=== PATIENT | male | born 1945 | race African-American/Black ===

== ENCOUNTER → 2018-06-23 | Outpatient (CLI) | payer MEDICARE, BC | END | disposition home or self-care (01) | LOC: CARD 12:41 | PROVIDERS: ATTEND Specialist | DX: I10 Essential (primary) hypertension (principal) | CPT/HCPCS: 93005 ==

== ENCOUNTER 2019-11-08 13:14 | Inpatient (IN) | payer BC, MEDICARE ==
[~2019-11-08] VITALS: Ht 175.3 cm; Wt 85.4 kg
[2019-11-08] MEDS ORDERED: ONDANSETRON HCL 4MG/2ML INJ IV STA (14:04)
[2019-11-08] MEDS ORDERED: LABETALOL 5MG/ML SYR 20 MG/4 ML SYRINGE IV ONE (14:15)
[2019-11-08 14:18] LABS: BASOPHILS % 0.9 % (0.0-2.0); HEMATOCRIT. 25.1 % (42.0-52.0); HEMOGLOBIN. 8.6 g/dL (14.0-18.0); LYMPHOCYTES % 19.2 % (20.0-50.0); MEAN CORPUSCULAR HEMOGLOBIN 32.1 pg (28.0-32.0); MEAN CORPUSCULAR VOLUME 93.7 fL (80.0-94.0); MONOCYTES % 8.6 % (2.0-8.0); NEUTROPHILS % 69.3 % (40.0-76.0); PLATELET 115 x1000/uL (130-400); RED BLOOD CELL COUNT 2.68 mill/uL (4.7-6.1); RED CELL DISTRIBUTION WIDTH 12.9 % (11.6-14.6)
[2019-11-08 14:25] LABS: CHLORIDE 111 mEq/L (98-107)
[2019-11-08 14:34] LABS: ETHANOL BLOOD < 10 mg/dL
[2019-11-08 16:20] LABS: *AMPHETAMINES SCREEN URINE NEGATIVE (NEGATIVE); *BARBITURATES SCREEN URINE NEGATIVE (NEGATIVE); *BENZODIAZEPINES SCREEN URINE NEGATIVE (NEGATIVE); *COCAINE SCREEN URINE NEGATIVE (NEGATIVE)
[2019-11-08 16:21] LABS: CANNABINOID URINE SCREEN NEGATIVE (NEGATIVE); METHADONE URINE SCREEN NEGATIVE (NEGATIVE); OPIATES URINE SCREEN NEGATIVE (NEGATIVE); PHENCYCLIDINE URINE SCREEN NEGATIVE (NEGATIVE)
[2019-11-08] MEDS ORDERED: CLONIDINE 0.1MG TABLET PO PRN (16:30)
[2019-11-08] MEDS ORDERED: ACETAMINOPHEN 325MG TABLET PO PRN (16:30)
[2019-11-08] MEDS ORDERED: HYDRALAZINE 20MG/ML VIAL IV PRN ×2 (17:02→21:00)
[2019-11-08 21:15] VITALS: BP 185/99
[2019-11-08] MEDS: DOXAZOSIN MESYLATE 4MG TABLET PO SCH (22:01)
[2019-11-08] MEDS ORDERED: AMLO10TA80 PO (23:52)
[2019-11-08] MEDS ORDERED: EPOE200014 SQ (23:52)
[2019-11-08] MEDS ORDERED: TORS20TA4 PO (23:52)
[2019-11-08] MEDS ORDERED: DOXA4TAB3 PO (23:52)
[2019-11-08] MEDS ORDERED: HYDR-4134 PO (23:52)
[2019-11-08] MEDS ORDERED: REPA0.5T5 PO (23:52)
[2019-11-08] MEDS ORDERED: ATOR20TA65 PO (23:52)
[2019-11-08 23:58] VITALS: BP 143/71
[2019-11-09] VITALS (16 sets, daily range): BP systolic 102–202; BP diastolic 62–90
[2019-11-09 06:13] LABS: CHLORIDE 112 mEq/L (98-107)
[2019-11-09 06:29] LABS: TOTAL IRON BINDING CAPACITY 249 ug/dL (250-450)
[2019-11-09 06:31] LABS: AMYLASE 172 IU/L (25-115); PHOSPHORUS 6.2 mg/dL (2.5-4.9)
[2019-11-09 06:41] LABS: HEPATITIS B SURFACE ANTIGEN NEGATIVE
[2019-11-09 07:21] LABS: INR 1.1; PROTHROMBIN TIME 11.9 sec (9.6-11.0)
[2019-11-09] MEDS ORDERED: CEFAZOLIN 1000MG PREMIX 50 ML IV SCH (07:30)
[2019-11-09 07:58] LABS: HEMATOCRIT. 21.1 % (42.0-52.0); HEMOGLOBIN. 7.2 g/dL (14.0-18.0); MEAN CORPUSCULAR VOLUME 94.1 fL (80.0-94.0); MEAN PLATELET VOLUME 9.1 fl (7.4-10.4); PLATELET 98 x1000/uL (130-400); RED BLOOD CELL COUNT 2.24 mill/uL (4.7-6.1); RED CELL DISTRIBUTION WIDTH 12.9 % (11.6-14.6)
[2019-11-09] MEDS ORDERED: LIDOCAINE HCL 1% 20ML VIAL (Pyxis) INJ ONE (08:01)
[2019-11-09] MEDS ORDERED: SODIUM BICARBONATE 4% (2.4MEQ) 5ML VIAL IV ONE (08:01)
[2019-11-09] MEDS ORDERED: CEFAZOLIN 1000MG PREMIX 50 ML IV ONE (08:02)
[2019-11-09] MEDS ORDERED: FENTANYL CITRATE/PF 50MCG/ML 2ML VIAL ONE (08:03)
[2019-11-09] MEDS: AMLODIPINE 10MG TABLET PO SCH (08:22)
[2019-11-09] MEDS ORDERED: FENTANYL CITRATE/PF 50MCG/ML 2ML VIAL IV SCH (08:45)
[2019-11-09] MEDS ORDERED: HEPARIN 5000 UNITS/ML VIAL SUBCUT SCH (09:00)
[2019-11-09] MEDS ORDERED: MANNITOL 12.5G (25%) VIAL 50ML IV SCH (10:00)
[2019-11-09 13:15] LABS: PLATELET ESTIMATE DECREASED
[2019-11-09 13:34] LABS: FERRITIN 591 ng/mL (22-322)
[2019-11-09] MEDS ORDERED: DEXTROSE 50% WATER 50ML SYRINGE IV PRN ×2 (13:45)
[2019-11-09] MEDS: HYDRALAZINE HCL 50MG TABLET PO SCH ×2 (13:45→21:58)
[2019-11-09] MEDS: CLONIDINE 0.2MG TABLET PO SCH ×2 (14:00→21:59)
[2019-11-09 14:33] LABS: VITAMIN B12 SERUM 944 pg/mL (211-911)
[2019-11-09 14:34] LABS: FOLIC ACID (FOLATE) SERUM > 20.00 ng/mL (>5.38)
[2019-11-09] MEDS ORDERED: BRIM10DR2 EACHEYE (15:45)
[2019-11-09] MEDS: INSULIN LISPRO 100 UNITS/ML SUBCUT SCH ×2 (17:50→21:00)
[2019-11-09] MEDS: BLOOD SUGAR DIAGNOSTIC STRIP TEST SCH ×2 (17:53→21:05)
[2019-11-09] MEDS: CALCIUM ACETATE 667MG CAPSULE PO SCH (18:21)
[2019-11-09] MEDS: FERROUS SULFATE 325MG TABLET PO SCH (18:21)
[2019-11-09 19:42] LABS: HEPATITIS B SURFACE AB < 3.1 mIU/mL
[2019-11-09 19:52] LABS: HEPATITIS B SURFACE ANTIGEN NEGATIVE
[2019-11-09 20:22] LABS: HEPATITIS A AB IGM NEGATIVE (NEGATIVE)
[2019-11-09] MEDS: DOXAZOSIN MESYLATE 4MG TABLET PO SCH (21:58)
[2019-11-10] VITALS (8 sets, daily range): BP systolic 108–125; BP diastolic 49–75
[2019-11-10] MEDS: BLOOD SUGAR DIAGNOSTIC STRIP TEST SCH ×4 (06:13→21:08)
[2019-11-10] MEDS: HYDRALAZINE HCL 50MG TABLET PO SCH ×3 (06:21→22:00)
[2019-11-10] MEDS: CLONIDINE 0.2MG TABLET PO SCH ×3 (06:21→22:00)
[2019-11-10] MEDS: INSULIN LISPRO 100 UNITS/ML SUBCUT SCH ×4 (07:50→21:21)
[2019-11-10] MEDS: CALCIUM ACETATE 667MG CAPSULE PO SCH ×3 (08:00→17:43)
[2019-11-10] MEDS: BRIMONIDINE 0.2% OPHTH DROPS 5ML BOTHEYE SCH ×2 (08:00→17:44)
[2019-11-10] MEDS: FERROUS SULFATE 325MG TABLET PO SCH ×2 (08:00→17:43)
[2019-11-10] MEDS: FOLIC ACID/VITAMIN B COMP W-C TABLET PO SCH (08:00)
[2019-11-10] MEDS: TIMOLOL MALEATE 0.5% OPHTH DROPS 5ML RIGHTEYE SCH ×2 (08:01→17:44)
[2019-11-10] MEDS: AMLODIPINE 10MG TABLET PO SCH (09:00)
[2019-11-10 09:13] LABS: BASOPHILS % 0.8 % (0.0-2.0); EOSINOPHILS % 1.5 % (0.0-5.0); LYMPHOCYTES % 18.4 % (20.0-50.0); MEAN CORPUSCULAR HEMOGLOBIN 32.1 pg (28.0-32.0); MEAN CORPUSCULAR VOLUME 92.9 fL (80.0-94.0); MONOCYTES % 10.1 % (2.0-8.0); NEUTROPHILS % 69.2 % (40.0-76.0); PLATELET 88 x1000/uL (130-400); RED BLOOD CELL COUNT 2.08 mill/uL (4.7-6.1)
[2019-11-10 09:19] LABS: HEMOGLOBIN. 6.7 g/dL (14.0-18.0)
[2019-11-10 09:20] LABS: HEMATOCRIT. 19.3 % (42.0-52.0)
[2019-11-10 09:23] LABS: CHLORIDE 103 mEq/L (98-107)
[2019-11-10] MEDS: ONDANSETRON HCL 4MG/2ML INJ IV PRN ×2 (09:48→21:18)
[2019-11-10 15:53] LABS: HEMATOCRIT 22.8 % (42.0-52.0); HEMOGLOBIN 7.8 g/dL (14.0-18.0)
[2019-11-10 16:05] LABS: INR 1.1; PROTHROMBIN TIME 11.9 sec (9.6-11.0)
[2019-11-10] MEDS ORDERED: EPOETIN ALFA 10000UNITS/ML VIAL SUBCUT SCH (21:00)
[2019-11-10] MEDS: DOXAZOSIN MESYLATE 4MG TABLET PO SCH (21:19)
[2019-11-11 00:14] VITALS: BP 122/62
[2019-11-11 04:00] VITALS: BP 134/64
[2019-11-11 05:07] LABS: HIV SCREEN 4G Non Reactive (Non Reactive)
[2019-11-11] MEDS: CLONIDINE 0.2MG TABLET PO SCH ×2 (06:00→13:25)
[2019-11-11] MEDS: HYDRALAZINE HCL 50MG TABLET PO SCH ×2 (06:00→13:25)
[2019-11-11 06:38] LABS: CHLORIDE 104 mEq/L (98-107)
[2019-11-11 06:49] LABS: BASOPHILS % 0.4 % (0.0-2.0); HEMATOCRIT. 23.1 % (42.0-52.0); HEMOGLOBIN. 7.9 g/dL (14.0-18.0); LYMPHOCYTES % 21.8 % (20.0-50.0); MEAN CORPUSCULAR HEMOGLOBIN 31.9 pg (28.0-32.0); MEAN CORPUSCULAR VOLUME 92.8 fL (80.0-94.0); MEAN PLATELET VOLUME 9.1 fl (7.4-10.4); MONOCYTES % 7.8 % (2.0-8.0); PLATELET 89 x1000/uL (130-400); RED BLOOD CELL COUNT 2.49 mill/uL (4.7-6.1); RED CELL DISTRIBUTION WIDTH 13.4 % (11.6-14.6)
[2019-11-11] MEDS: BLOOD SUGAR DIAGNOSTIC STRIP TEST SCH ×2 (06:49→13:22)
[2019-11-11] MEDS: INSULIN LISPRO 100 UNITS/ML SUBCUT SCH ×2 (06:49→13:10)
[2019-11-11 08:00] VITALS: BP 135/66
[2019-11-11] MEDS: CALCIUM ACETATE 667MG CAPSULE PO SCH ×2 (08:10→13:23)
[2019-11-11] MEDS: FOLIC ACID/VITAMIN B COMP W-C TABLET PO SCH (08:10)
[2019-11-11] MEDS: FERROUS SULFATE 325MG TABLET PO SCH (08:10)
[2019-11-11] MEDS: BRIMONIDINE 0.2% OPHTH DROPS 5ML BOTHEYE SCH (08:12)
[2019-11-11] MEDS: AMLODIPINE 10MG TABLET PO SCH (08:12)
[2019-11-11] MEDS: TIMOLOL MALEATE 0.5% OPHTH DROPS 5ML RIGHTEYE SCH (08:12)
[2019-11-11 12:00] VITALS: BP 111/72
[2019-11-11] MEDS ORDERED: NEPVIT PO (12:21)
[2019-11-11] MEDS ORDERED: CALC667C PO (12:21)
[2019-11-11] MEDS ORDERED: HYDR-4135 PO (12:21)
[2019-11-11] MEDS ORDERED: FERR325T23 PO (12:21)
[2019-11-11] MEDS ORDERED: CLON0.2T12 PO (12:21)
[2019-11-11 14:45] VITALS: BP 111/72
[2019-11-11 16:16] VITALS: BP 160/74
== END 2019-11-11 17:45 | disposition home or self-care (01) | DRG 673 ==
LOC: ER 13:14 → CMPBEDREQ 15:40 → EDBEDREQ 15:46 → 6WST 15:50 → EDBEDREQ 15:55 → EDBEDREQTM 15:55 → ENRESERV 20:16 → 7WST 11-11 11:31
PROVIDERS: ADMIT Internal Medicine; ATTEND Internal Medicine
PROC: 5A1D70Z Performance of Urinary Filtration, Intermittent, Less than 6 Hours Per Day (ICD-10-PCS; 2019-11-09)
PROC: 0JH63XZ Insertion of Tunneled Vascular Access Device into Chest Subcutaneous Tissue and Fascia, Percutaneous Approach (ICD-10-PCS; 2019-11-09)
PROC: 02HV33Z Insertion of Infusion Device into Superior Vena Cava, Percutaneous Approach (ICD-10-PCS; 2019-11-09)
PROC: B548ZZA Ultrasonography of Superior Vena Cava, Guidance (ICD-10-PCS; 2019-11-09)
PROC: B5181ZA Fluoroscopy of Superior Vena Cava using Low Osmolar Contrast, Guidance (ICD-10-PCS; 2019-11-09)
PROC: 30233N1 Transfusion of Nonautologous Red Blood Cells into Peripheral Vein, Percutaneous Approach (ICD-10-PCS; principal; 2019-11-10)
PROC: 5A1D70Z Performance of Urinary Filtration, Intermittent, Less than 6 Hours Per Day (ICD-10-PCS; 2019-11-11)
DX: I12.0 Hypertensive chronic kidney disease with stage 5 chronic kidney disease or end stage renal disease (principal); N18.6 End stage renal disease; G93.41 Metabolic encephalopathy; I16.1 Hypertensive emergency; D61.818 Other pancytopenia; N25.81 Secondary hyperparathyroidism of renal origin; N17.9 Acute kidney failure, unspecified; E11.22 Type 2 diabetes mellitus with diabetic chronic kidney disease; E87.6 Hypokalemia; D63.1 Anemia in chronic kidney disease; E11.40 Type 2 diabetes mellitus with diabetic neuropathy, unspecified; E78.5 Hyperlipidemia, unspecified; I49.1 Atrial premature depolarization; E83.51 Hypocalcemia; I35.1 Nonrheumatic aortic (valve) insufficiency; B19.20 Unspecified viral hepatitis C without hepatic coma; I25.2 Old myocardial infarction; Z86.73 Personal history of transient ischemic attack (TIA), and cerebral infarction without residual deficits; Z99.2 Dependence on renal dialysis; Z79.899 Other long term (current) drug therapy; Z82.49 Family history of ischemic heart disease and other diseases of the circulatory system; Z83.3 Family history of diabetes mellitus; Z80.8 Family history of malignant neoplasm of other organs or systems
CPT/HCPCS: 36415; 36558; 71045; 76937; 77001; 80053; 80076; 80305; 80320; 82150; 82607; 82728; 82746; 82962; 83036; 83540; 83550; 83735; 83880; 83970; 84100; 84484; 85014; 85018; 85025; 85044; 85384; 86705; 86706; 86709; 86803; 86850; 86900; 86920; 87340; 87389; 93005; 93306; 96374; 96375; 99152; 99153; 99291; C1750; C1769; J0360; J0690; J0885; J1642; J1815; J2150; J2405; J3010; J3490; P9016; G0480; G0500

== ENCOUNTER 2019-11-17 17:37 | Inpatient (IN) | payer BC ==
[~2019-11-17] VITALS: Ht 175.3 cm; Wt 75.3 kg
[~2019-11-17 17:37] MED LIST: AMLO10TA80 PO; ATOR20TA65 PO; BRIM10DR2 EACHEYE; CALC667C PO; CLON0.2T12 PO; DOXA4TAB3 PO; EPOE200014 SQ; FERR325T23 PO; HYDR-4135 PO; NEPVIT PO; REPA0.5T5 PO; TORS20TA4 PO
[2019-11-17] MEDS ORDERED: LORAZEPAM 2MG/ML CPJ IM ONE (19:00)
[2019-11-17] MEDS ORDERED: HALOPERIDOL LACTATE 5MG/ML VIAL IM ONE (19:00)
[2019-11-17 19:45] LABS: BASOPHILS % 0.6 % (0.0-2.0); EOSINOPHILS % 2.4 % (0.0-5.0); HEMATOCRIT. 28.4 % (42.0-52.0); HEMOGLOBIN. 9.7 g/dL (14.0-18.0); LYMPHOCYTES % 25.4 % (20.0-50.0); MEAN CORPUSCULAR HEMOGLOBIN 32.2 pg (28.0-32.0); MEAN CORPUSCULAR VOLUME 94.6 fL (80.0-94.0); MEAN PLATELET VOLUME 8.9 fl (7.4-10.4); MONOCYTES % 13.2 % (2.0-8.0); NEUTROPHILS % 58.4 % (40.0-76.0); PLATELET 132 x1000/uL (130-400); RED CELL DISTRIBUTION WIDTH 13.7 % (11.6-14.6)
[2019-11-17 19:53] LABS: CHLORIDE 95 mEq/L (98-107)
[2019-11-17 19:55] LABS: INR 1.2; PROTHROMBIN TIME 12.6 sec (9.6-11.0)
[2019-11-17 19:56] LABS: ETHANOL BLOOD < 10 mg/dL
[2019-11-17] MEDS ORDERED: CLONIDINE 0.2MG TABLET PO ONE (22:00)
[2019-11-17] MEDS ORDERED: AMLODIPINE 10MG TABLET PO ONE (22:00)
[2019-11-17] MEDS ORDERED: ASPIRIN 600MG SUPP PR ONE (22:30)
[2019-11-17] MEDS ORDERED: HYDRALAZINE 20MG/ML VIAL IV ONE (22:30)
[2019-11-17] MEDS ORDERED: HYDRALAZINE 20MG/ML VIAL IV SCH (23:30)
[2019-11-18] VITALS (7 sets, daily range): BP systolic 116–169; BP diastolic 58–98
[2019-11-18 00:29] LABS: CLARITY URINE CLEAR (CLEAR); COLOR URINE YELLOW (YELLOW); KETONES URINE NEGATIVE (NEGATIVE); LEUKOCYTE ESTERASE URINE NEGATIVE (NEGATIVE); NITRITE URINE NEGATIVE (NEGATIVE); OCCULT BLOOD URINE NEGATIVE (NEGATIVE); PH URINE 7.5 (4.5-8.0); PROTEIN URINE 3+ (NEGATIVE); SPECIFIC GRAVITY URINE 1.008 (1.005-1.030)
[2019-11-18 00:37] LABS: *AMPHETAMINES SCREEN URINE NEGATIVE (NEGATIVE)
[2019-11-18 00:38] LABS: *BARBITURATES SCREEN URINE NEGATIVE (NEGATIVE); *BENZODIAZEPINES SCREEN URINE NEGATIVE (NEGATIVE); *COCAINE SCREEN URINE NEGATIVE (NEGATIVE); METHADONE URINE SCREEN NEGATIVE (NEGATIVE); OPIATES URINE SCREEN NEGATIVE (NEGATIVE); PHENCYCLIDINE URINE SCREEN NEGATIVE (NEGATIVE)
[2019-11-18 00:39] LABS: CANNABINOID URINE SCREEN NEGATIVE (NEGATIVE)
[2019-11-18] MEDS ORDERED: REPAGLINIDE 0.5MG TABLET PO SCH (02:15)
[2019-11-18] MEDS ORDERED: AMLODIPINE 10MG TABLET PO SCH (02:15)
[2019-11-18] MEDS ORDERED: ONDANSETRON HCL 4MG/2ML INJ IV PRN (02:15)
[2019-11-18 05:04] LABS: BASOPHILS % 0.6 % (0.0-2.0); EOSINOPHILS % 2.1 % (0.0-5.0); HEMATOCRIT. 32.1 % (42.0-52.0); LYMPHOCYTES % 15.3 % (20.0-50.0); MEAN CORPUSCULAR HEMOGLOBIN 32.2 pg (28.0-32.0); MEAN CORPUSCULAR VOLUME 93.9 fL (80.0-94.0); MEAN PLATELET VOLUME 8.9 fl (7.4-10.4); MONOCYTES % 10.6 % (2.0-8.0); NEUTROPHILS % 71.4 % (40.0-76.0); PLATELET 117 x1000/uL (130-400); RED BLOOD CELL COUNT 3.42 mill/uL (4.7-6.1); RED CELL DISTRIBUTION WIDTH 13.2 % (11.6-14.6)
[2019-11-18] MEDS ORDERED: CLONIDINE 0.2MG TABLET PO SCH (06:00)
[2019-11-18] MEDS: DOXAZOSIN MESYLATE 4MG TABLET PO SCH ×2 (08:50→21:38)
[2019-11-18] MEDS: FOLIC ACID/VITAMIN B COMP W-C TABLET PO SCH (08:51)
[2019-11-18] MEDS: FERROUS SULFATE 325MG TABLET PO SCH ×2 (08:51→16:47)
[2019-11-18] MEDS: CALCIUM ACETATE 667MG CAPSULE PO SCH ×3 (08:51→16:47)
[2019-11-18] MEDS: HYDRALAZINE HCL 50MG TABLET PO SCH ×3 (08:53→21:39)
[2019-11-18] MEDS: HEPARIN 5000 UNITS/ML VIAL SUBCUT SCH ×2 (08:53→21:38)
[2019-11-18] MEDS: AMLODIPINE 10MG TABLET PO SCH (08:54)
[2019-11-18] MEDS ORDERED: ATORVASTATIN CALCIUM 20MG TABLET PO SCH (09:00)
[2019-11-18] MEDS: LOSARTAN POTASSIUM 25 MG TABLET PO SCH (11:45)
[2019-11-18] MEDS: FUROSEMIDE 40MG/4ML VIAL IVP SCH (11:45)
[2019-11-18] MEDS ORDERED: MANNITOL 12.5G (25%) VIAL 50ML IV SCH (15:00)
[2019-11-18] MEDS ORDERED: ALLO100T MT (18:54)
[2019-11-18] MEDS ORDERED: RISPERIDONE 0.5MG TABLET PO PRN (20:45)
[2019-11-19] VITALS (13 sets, daily range): BP systolic 102–140; BP diastolic 51–77
[2019-11-19] MEDS: HYDRALAZINE HCL 50MG TABLET PO SCH ×3 (05:58→21:51)
[2019-11-19 06:56] LABS: BASOPHILS % 0.6 % (0.0-2.0); EOSINOPHILS % 1.3 % (0.0-5.0); HEMATOCRIT. 28.2 % (42.0-52.0); HEMOGLOBIN. 9.7 g/dL (14.0-18.0); LYMPHOCYTES % 18.7 % (20.0-50.0); MEAN CORPUSCULAR HEMOGLOBIN 32.4 pg (28.0-32.0); MEAN CORPUSCULAR VOLUME 93.9 fL (80.0-94.0); MEAN PLATELET VOLUME 8.6 fl (7.4-10.4); MONOCYTES % 11.6 % (2.0-8.0); NEUTROPHILS % 67.8 % (40.0-76.0); PLATELET 108 x1000/uL (130-400); RED CELL DISTRIBUTION WIDTH 13.6 % (11.6-14.6)
[2019-11-19 07:54] LABS: CHLORIDE 104 mEq/L (98-107)
[2019-11-19 08:04] LABS: VITAMIN B12 SERUM >2000 pg/mL pg/mL (211-911)
[2019-11-19] MEDS: HEPARIN 5000 UNITS/ML VIAL SUBCUT SCH ×2 (08:26→21:48)
[2019-11-19] MEDS: FUROSEMIDE 40MG/4ML VIAL IVP SCH (08:26)
[2019-11-19] MEDS: DOXAZOSIN MESYLATE 4MG TABLET PO SCH ×2 (08:27→21:46)
[2019-11-19] MEDS: CALCIUM ACETATE 667MG CAPSULE PO SCH ×3 (08:27→17:15)
[2019-11-19] MEDS: AMLODIPINE 10MG TABLET PO SCH (08:27)
[2019-11-19] MEDS: FOLIC ACID/VITAMIN B COMP W-C TABLET PO SCH (08:27)
[2019-11-19] MEDS: LOSARTAN POTASSIUM 25 MG TABLET PO SCH (08:27)
[2019-11-19] MEDS: FERROUS SULFATE 325MG TABLET PO SCH ×2 (08:27→17:15)
[2019-11-19] MEDS: ATORVASTATIN CALCIUM 20MG TABLET PO SCH (21:46)
[2019-11-20] VITALS (14 sets, daily range): BP systolic 124–200; BP diastolic 49–97
[2019-11-20] MEDS: ACETAMINOPHEN 325MG TABLET PO PRN (03:22)
[2019-11-20] MEDS: HYDRALAZINE HCL 50MG TABLET PO SCH ×3 (06:35→21:21)
[2019-11-20] MEDS: CLONIDINE 0.1MG TABLET PO PRN (07:22)
[2019-11-20] MEDS: CALCIUM ACETATE 667MG CAPSULE PO SCH ×3 (08:05→18:23)
[2019-11-20] MEDS: FOLIC ACID/VITAMIN B COMP W-C TABLET PO SCH (08:05)
[2019-11-20] MEDS: FERROUS SULFATE 325MG TABLET PO SCH ×2 (08:05→18:23)
[2019-11-20] MEDS: FUROSEMIDE 40MG/4ML VIAL IVP SCH (08:15)
[2019-11-20] MEDS: HEPARIN 5000 UNITS/ML VIAL SUBCUT SCH ×2 (08:16→21:23)
[2019-11-20 10:14] LABS: BASOPHILS % 0.8 % (0.0-2.0); HEMATOCRIT. 27.6 % (42.0-52.0); HEMOGLOBIN. 9.4 g/dL (14.0-18.0); LYMPHOCYTES % 22.5 % (20.0-50.0); MEAN CORPUSCULAR HEMOGLOBIN 32.1 pg (28.0-32.0); MEAN CORPUSCULAR VOLUME 94.1 fL (80.0-94.0); MEAN PLATELET VOLUME 8.1 fl (7.4-10.4); MONOCYTES % 12.2 % (2.0-8.0); NEUTROPHILS % 63.5 % (40.0-76.0); PLATELET 99 x1000/uL (130-400); RED BLOOD CELL COUNT 2.93 mill/uL (4.7-6.1); RED CELL DISTRIBUTION WIDTH 13.6 % (11.6-14.6)
[2019-11-20] MEDS ORDERED: RISP05 PO (10:16)
[2019-11-20] MEDS ORDERED: LOSA25TA3 PO (10:16)
[2019-11-20 10:35] LABS: CHLORIDE 102 mEq/L (98-107)
[2019-11-20] MEDS: DOXAZOSIN MESYLATE 4MG TABLET PO SCH ×2 (14:43→21:21)
[2019-11-20] MEDS: LOSARTAN POTASSIUM 25 MG TABLET PO SCH (14:43)
[2019-11-20] MEDS: HYDRALAZINE 20MG/ML VIAL IV PRN ×2 (17:26→17:36)
[2019-11-20] MEDS: AMLODIPINE 10MG TABLET PO SCH (17:26)
[2019-11-20] MEDS: ATORVASTATIN CALCIUM 20MG TABLET PO SCH (21:21)
[2019-11-21] VITALS (12 sets, daily range): BP systolic 99–166; BP diastolic 49–90
[2019-11-21] MEDS: CLONIDINE 0.1MG TABLET PO PRN (02:58)
[2019-11-21] MEDS: RISPERIDONE 1MG TABLET PO PRN ×2 (02:58→21:11)
[2019-11-21] MEDS: HYDRALAZINE HCL 50MG TABLET PO SCH ×3 (05:34→21:11)
[2019-11-21 06:08] LABS: BASOPHILS % 0.9 % (0.0-2.0); HEMOGLOBIN. 9.1 g/dL (14.0-18.0); LYMPHOCYTES % 10.4 % (20.0-50.0); MEAN CORPUSCULAR VOLUME 94.4 fL (80.0-94.0); MEAN PLATELET VOLUME 8.4 fl (7.4-10.4); MONOCYTES % 10.1 % (2.0-8.0); NEUTROPHILS % 77.6 % (40.0-76.0); PLATELET 95 x1000/uL (130-400); RED BLOOD CELL COUNT 2.86 mill/uL (4.7-6.1); RED CELL DISTRIBUTION WIDTH 13.5 % (11.6-14.6)
[2019-11-21 06:19] LABS: CHLORIDE 107 mEq/L (98-107)
[2019-11-21] MEDS: LOSARTAN POTASSIUM 25 MG TABLET PO SCH (08:33)
[2019-11-21] MEDS: AMLODIPINE 10MG TABLET PO SCH (08:33)
[2019-11-21] MEDS: FERROUS SULFATE 325MG TABLET PO SCH ×2 (08:33→18:31)
[2019-11-21] MEDS: DOXAZOSIN MESYLATE 4MG TABLET PO SCH ×2 (08:33→21:11)
[2019-11-21] MEDS: FUROSEMIDE 40MG/4ML VIAL IVP SCH (08:33)
[2019-11-21] MEDS: FOLIC ACID/VITAMIN B COMP W-C TABLET PO SCH (08:33)
[2019-11-21] MEDS: CALCIUM ACETATE 667MG CAPSULE PO SCH ×3 (08:33→18:31)
[2019-11-21] MEDS: HEPARIN 5000 UNITS/ML VIAL SUBCUT SCH (08:34)
[2019-11-21] MEDS: ATORVASTATIN CALCIUM 20MG TABLET PO SCH (21:12)
[2019-11-21] MEDS: ACETAMINOPHEN 325MG TABLET PO PRN (21:13)
[2019-11-21] MEDS ORDERED: RISPERIDONE 1MG TABLET PO NR (23:28)
[2019-11-22] VITALS (12 sets, daily range): BP systolic 120–171; BP diastolic 59–90
[2019-11-22] MEDS: HYDRALAZINE HCL 50MG TABLET PO SCH (06:14)
[2019-11-22] MEDS ORDERED: HALOPERIDOL LACTATE 5MG/ML VIAL IM SCH (06:30)
[2019-11-22] MEDS ORDERED: HALOPERIDOL LACTATE 5MG/ML VIAL IM PRN (06:30)
[2019-11-22] MEDS ORDERED: RISPERIDONE 1MG TABLET PO PRN (08:45)
[2019-11-22] MEDS: LOSARTAN POTASSIUM 25 MG TABLET PO SCH ×2 (09:04→21:31)
[2019-11-22] MEDS: CALCIUM ACETATE 667MG CAPSULE PO SCH ×3 (09:04→18:10)
[2019-11-22] MEDS: FUROSEMIDE 40MG/4ML VIAL IVP SCH (09:04)
[2019-11-22] MEDS: FOLIC ACID/VITAMIN B COMP W-C TABLET PO SCH (09:05)
[2019-11-22] MEDS: DOXAZOSIN MESYLATE 4MG TABLET PO SCH ×2 (09:05→21:31)
[2019-11-22] MEDS: AMLODIPINE 10MG TABLET PO SCH (09:05)
[2019-11-22] MEDS: FERROUS SULFATE 325MG TABLET PO SCH ×2 (09:09→18:10)
[2019-11-22 10:37] LABS: BASOPHILS % 0.7 % (0.0-2.0); EOSINOPHILS % 0.3 % (0.0-5.0); HEMATOCRIT. 27.6 % (42.0-52.0); HEMOGLOBIN. 9.3 g/dL (14.0-18.0); LYMPHOCYTES % 14.1 % (20.0-50.0); MEAN CORPUSCULAR HEMOGLOBIN 31.8 pg (28.0-32.0); MEAN CORPUSCULAR VOLUME 94.3 fL (80.0-94.0); MEAN PLATELET VOLUME 8.5 fl (7.4-10.4); MONOCYTES % 12.4 % (2.0-8.0); NEUTROPHILS % 72.5 % (40.0-76.0); PLATELET 80 x1000/uL (130-400); RED BLOOD CELL COUNT 2.93 mill/uL (4.7-6.1); RED CELL DISTRIBUTION WIDTH 13.5 % (11.6-14.6)
[2019-11-22 10:43] LABS: CHLORIDE 106 mEq/L (98-107)
[2019-11-22] MEDS: HYDRALAZINE 20MG/ML VIAL IV PRN (11:39)
[2019-11-22] MEDS: CLONIDINE 0.2MG TABLET PO SCH ×2 (16:39→21:30)
[2019-11-22] MEDS ORDERED: LOSARTAN POTASSIUM 25 MG TABLET PO SCH (21:00)
[2019-11-22] MEDS: ATORVASTATIN CALCIUM 20MG TABLET PO SCH (21:31)
[2019-11-22] MEDS: RISPERIDONE 1MG TABLET PO SCH (21:35)
[2019-11-23] VITALS (12 sets, daily range): BP systolic 104–143; BP diastolic 49–86
[2019-11-23] MEDS: CLONIDINE 0.2MG TABLET PO SCH ×2 (05:26→13:47)
[2019-11-23 07:30] LABS: BASOPHILS % 0.7 % (0.0-2.0); EOSINOPHILS % 2.1 % (0.0-5.0); HEMATOCRIT. 25.7 % (42.0-52.0); HEMOGLOBIN. 8.8 g/dL (14.0-18.0); LYMPHOCYTES % 21.8 % (20.0-50.0); MEAN CORPUSCULAR HEMOGLOBIN 32.4 pg (28.0-32.0); MEAN CORPUSCULAR VOLUME 94.5 fL (80.0-94.0); MEAN PLATELET VOLUME 8.5 fl (7.4-10.4); MONOCYTES % 13.2 % (2.0-8.0); NEUTROPHILS % 62.2 % (40.0-76.0); PLATELET 77 x1000/uL (130-400); RED BLOOD CELL COUNT 2.72 mill/uL (4.7-6.1); RED CELL DISTRIBUTION WIDTH 13.5 % (11.6-14.6)
[2019-11-23 07:37] LABS: CHLORIDE 106 mEq/L (98-107)
[2019-11-23 07:44] LABS: PHOSPHORUS 4.4 mg/dL (2.5-4.9)
[2019-11-23] MEDS: RISPERIDONE 1MG TABLET PO SCH ×2 (09:00→22:02)
[2019-11-23] MEDS: FOLIC ACID/VITAMIN B COMP W-C TABLET PO SCH (09:00)
[2019-11-23] MEDS: CALCIUM ACETATE 667MG CAPSULE PO SCH ×3 (10:52→18:27)
[2019-11-23] MEDS: AMLODIPINE 10MG TABLET PO SCH (10:52)
[2019-11-23] MEDS: FERROUS SULFATE 325MG TABLET PO SCH ×2 (10:52→18:27)
[2019-11-23] MEDS: LOSARTAN POTASSIUM 25 MG TABLET PO SCH (10:53)
[2019-11-23] MEDS: DOXAZOSIN MESYLATE 4MG TABLET PO SCH (10:53)
[2019-11-23] MEDS: FUROSEMIDE 40MG/4ML VIAL IVP SCH (10:53)
[2019-11-23] MEDS ORDERED: RISP1 PO (11:35)
[2019-11-23] MEDS: ATORVASTATIN CALCIUM 20MG TABLET PO SCH (22:02)
[2019-11-24] VITALS (8 sets, daily range): BP systolic 98–141; BP diastolic 61–78
[2019-11-24] MEDS: LOSARTAN POTASSIUM 50 MG TABLET PO SCH ×2 (00:14→12:47)
[2019-11-24] MEDS: DOXAZOSIN MESYLATE 4MG TABLET PO SCH ×2 (00:15→12:47)
[2019-11-24] MEDS: CLONIDINE 0.2MG TABLET PO SCH ×3 (01:10→13:19)
[2019-11-24] MEDS: FOLIC ACID/VITAMIN B COMP W-C TABLET PO SCH (08:39)
[2019-11-24] MEDS: FUROSEMIDE 40MG/4ML VIAL IVP SCH (08:39)
[2019-11-24] MEDS: CALCIUM ACETATE 667MG CAPSULE PO SCH ×2 (08:39→12:47)
[2019-11-24] MEDS: FERROUS SULFATE 325MG TABLET PO SCH (08:39)
[2019-11-24] MEDS: RISPERIDONE 1MG TABLET PO SCH (08:41)
[2019-11-24] MEDS: AMLODIPINE 10MG TABLET PO SCH (12:47)
== END 2019-11-24 16:30 | disposition home health service (06) | DRG 70 ==
LOC: ER 17:37 → 5EST 23:21 → EDBEDREQTM 23:38 → EDBEDREQ 23:38 → EDBEDREQSVC 23:38 → ENRESERV 11-18 09:42 → 5EST 11-21 23:12
PROVIDERS: ADMIT Internal Medicine; ATTEND Internal Medicine
PROC: 5A1D70Z Performance of Urinary Filtration, Intermittent, Less than 6 Hours Per Day (ICD-10-PCS; principal; 2019-11-18)
PROC: 5A1D70Z Performance of Urinary Filtration, Intermittent, Less than 6 Hours Per Day (ICD-10-PCS; 2019-11-19)
PROC: 5A1D70Z Performance of Urinary Filtration, Intermittent, Less than 6 Hours Per Day (ICD-10-PCS; 2019-11-22)
PROC: 4A00X4Z Measurement of Central Nervous Electrical Activity, External Approach (ICD-10-PCS; 2019-11-23)
DX: G93.41 Metabolic encephalopathy (principal); N18.6 End stage renal disease; I16.1 Hypertensive emergency; N25.81 Secondary hyperparathyroidism of renal origin; E46 Unspecified protein-calorie malnutrition; F23 Brief psychotic disorder; I12.0 Hypertensive chronic kidney disease with stage 5 chronic kidney disease or end stage renal disease; F29 Unspecified psychosis not due to a substance or known physiological condition; D64.9 Anemia, unspecified; B19.20 Unspecified viral hepatitis C without hepatic coma; E11.40 Type 2 diabetes mellitus with diabetic neuropathy, unspecified; D69.6 Thrombocytopenia, unspecified; E11.22 Type 2 diabetes mellitus with diabetic chronic kidney disease; E87.5 Hyperkalemia; I35.1 Nonrheumatic aortic (valve) insufficiency; F90.9 Attention-deficit hyperactivity disorder, unspecified type; Z72.820 Sleep deprivation; Z79.899 Other long term (current) drug therapy; Z86.73 Personal history of transient ischemic attack (TIA), and cerebral infarction without residual deficits; Z99.2 Dependence on renal dialysis
CPT/HCPCS: 36415; 70551; 80048; 80053; 80305; 80320; 81003; 82140; 82607; 82962; 83735; 84100; 84439; 84443; 84484; 85025; 86592; 93005; 95816; 97162; 99291; J0360; J1630; J1644; J1940; J2060; J2150; J2405; G0480

== ENCOUNTER 2020-03-02 20:10 | Emergency (ER) | payer BC ==
[~2020-03-02] VITALS: Ht 193 cm; Wt 77.0 kg
[~2020-03-02 20:10] MED LIST changes: +ALLO100T MT; -CLON0.2T12 PO; +LOSA25TA3 PO; +RISP1 PO
[2020-03-02] MEDS ORDERED: MORPHINE SULFATE 4 MG/ML CPJ (NOT FOR IM USE) IV STA (21:13)
[2020-03-02] MEDS ORDERED: ONDANSETRON HCL 4MG/2ML INJ IV STA (21:13)
[2020-03-02] MEDS ORDERED: ONDANSETRON HCL 4MG/2ML INJ IV ONE (23:00)
[2020-03-02 23:25] LABS: BASOPHILS % 0.3 % (0.0-2.0); EOSINOPHILS % 0.6 % (0.0-5.0); HEMATOCRIT. 37.5 % (42.0-52.0); HEMOGLOBIN. 12.7 g/dL (14.0-18.0); LYMPHOCYTES % 10.2 % (20.0-50.0); MEAN CORPUSCULAR HEMOGLOBIN 34.1 pg (28.0-32.0); MEAN CORPUSCULAR VOLUME 100.5 fL (80.0-94.0); MEAN PLATELET VOLUME 8.4 fl (7.4-10.4); MONOCYTES % 6.8 % (2.0-8.0); NEUTROPHILS % 82.1 % (40.0-76.0); PLATELET 110 x1000/uL (130-400); RED BLOOD CELL COUNT 3.74 mill/uL (4.7-6.1); RED CELL DISTRIBUTION WIDTH 12.8 % (11.6-14.6)
[2020-03-02 23:32] LABS: CHLORIDE 101 mEq/L (98-107)
[2020-03-02 23:34] LABS: PROTHROMBIN TIME 10.8 sec (9.6-11.0)
[2020-03-03 00:41] VITALS: BP 161/72
== END 2020-03-03 00:43 | disposition home or self-care (01) ==
LOC: ER 20:10
DX: R10.30 Lower abdominal pain, unspecified (principal); E11.22 Type 2 diabetes mellitus with diabetic chronic kidney disease; N18.6 End stage renal disease; Z99.2 Dependence on renal dialysis; K74.60 Unspecified cirrhosis of liver; Z98.890 Other specified postprocedural states; Z79.899 Other long term (current) drug therapy
CPT/HCPCS: 36415; 74176; 80053; 83690; 85025; 85610; 93005; 96374; 96375; 96376; 99285; J2270; J2405

== ENCOUNTER 2020-03-08 16:21 | Inpatient (IN) | payer BC ==
[~2020-03-08] VITALS: Ht 193 cm; Wt 72.1 kg
[2020-03-08] MEDS ORDERED: HYDRALAZINE 20MG/ML VIAL IV ONE (17:00)
[2020-03-08 17:18] LABS: BASOPHILS % 0.7 % (0.0-2.0); EOSINOPHILS % 2.5 % (0.0-5.0); HEMATOCRIT. 35.7 % (42.0-52.0); HEMOGLOBIN. 12.4 g/dL (14.0-18.0); LYMPHOCYTES % 19.4 % (20.0-50.0); MEAN CORPUSCULAR HEMOGLOBIN 33.9 pg (28.0-32.0); MEAN CORPUSCULAR VOLUME 97.9 fL (80.0-94.0); MEAN PLATELET VOLUME 7.7 fl (7.4-10.4); MONOCYTES % 7.8 % (2.0-8.0); NEUTROPHILS % 69.6 % (40.0-76.0); PLATELET 145 x1000/uL (130-400); RED BLOOD CELL COUNT 3.65 mill/uL (4.7-6.1); RED CELL DISTRIBUTION WIDTH 13.3 % (11.6-14.6)
[2020-03-08 17:22] LABS: CHLORIDE 102 mEq/L (98-107)
[2020-03-08] MEDS ORDERED: ONDANSETRON HCL 4MG/2ML INJ IV PRN (19:00)
[2020-03-08] MEDS ORDERED: IPRATROPIUM/ALBUTEROL 0.5-3(2.5)MG/3ML NEB ORI PRN (19:00)
[2020-03-08] MEDS ORDERED: CLONIDINE 0.1MG TABLET PO PRN (19:00)
[2020-03-08] MEDS: LOSARTAN POTASSIUM 50 MG TABLET PO SCH (19:37)
[2020-03-08] MEDS ORDERED: ASPIRIN 325MG EC TABLET PO ONE (19:45)
[2020-03-08] MEDS ORDERED: METOPROLOL TARTRATE 50MG TABLET PO NR (20:15)
[2020-03-08] MEDS: ENOXAPARIN 30MG/0.3ML SYR SUBCUT SCH (20:43)
[2020-03-08] MEDS: ATORVASTATIN CALCIUM 20MG TABLET PO SCH (21:24)
[2020-03-08] MEDS: HYDRALAZINE HCL 50MG TABLET PO SCH (21:24)
[2020-03-08] MEDS: FLUTICASONE PROPIONATE 50MCG/SPRAY BOTTLE BOTHNSTRLS SCH (21:44)
[2020-03-08] MEDS: SODIUM CHLORIDE 0.9% INJ 3ML FLUSH IVF SCH (21:45)
[2020-03-08 22:00] VITALS: BP 164/90
[2020-03-08] MEDS ORDERED: DEXTROSE 50% WATER 50ML SYRINGE IV PRN (23:00)
[2020-03-09] VITALS: BP 164/90
[2020-03-09] MEDS: TEMAZEPAM 15MG CAPSULE PO PRN ×2 (02:59→20:49)
[2020-03-09 04:00] VITALS: BP 119/67
[2020-03-09] MEDS: SODIUM CHLORIDE 0.9% INJ 3ML FLUSH IVF SCH ×3 (06:11→20:49)
[2020-03-09] MEDS: HYDRALAZINE HCL 50MG TABLET PO SCH ×3 (06:12→20:48)
[2020-03-09] MEDS: INSULIN LISPRO 100 UNITS/ML SUBCUT SCH ×4 (06:17→20:32)
[2020-03-09] MEDS: BLOOD SUGAR DIAGNOSTIC STRIP TEST SCH ×4 (06:17→20:31)
[2020-03-09 06:58] LABS: BASOPHILS % 0.4 % (0.0-2.0); EOSINOPHILS % 0.7 % (0.0-5.0); HEMATOCRIT. 38.4 % (42.0-52.0); HEMOGLOBIN. 13.1 g/dL (14.0-18.0); LYMPHOCYTES % 17.6 % (20.0-50.0); MEAN CORPUSCULAR HEMOGLOBIN 33.7 pg (28.0-32.0); MEAN PLATELET VOLUME 8.1 fl (7.4-10.4); MONOCYTES % 7.1 % (2.0-8.0); NEUTROPHILS % 74.2 % (40.0-76.0); PLATELET 166 x1000/uL (130-400); RED BLOOD CELL COUNT 3.87 mill/uL (4.7-6.1); RED CELL DISTRIBUTION WIDTH 13.5 % (11.6-14.6)
[2020-03-09 07:12] LABS: PHOSPHORUS 3.4 mg/dL (2.5-4.9)
[2020-03-09 08:00] VITALS: BP 153/73
[2020-03-09] MEDS: RISPERIDONE 1MG TABLET PO SCH (08:18)
[2020-03-09] MEDS: LOSARTAN POTASSIUM 50 MG TABLET PO SCH ×2 (08:18→20:49)
[2020-03-09] MEDS: CALCIUM ACETATE 667MG CAPSULE PO SCH ×3 (08:19→17:40)
[2020-03-09] MEDS: FLUTICASONE PROPIONATE 50MCG/SPRAY BOTTLE BOTHNSTRLS SCH ×2 (08:19→20:49)
[2020-03-09] MEDS: CALCITRIOL 0.25MCG CAPSULE PO SCH (11:38)
[2020-03-09] MEDS: ACETAMINOPHEN 325MG TABLET PO PRN (11:39)
[2020-03-09 12:00] VITALS: BP 134/75
[2020-03-09 14:00] VITALS: BP 134/75
[2020-03-09 20:00] VITALS: BP 171/99
[2020-03-09] MEDS: QUETIAPINE FUMARATE 25MG TABLET PO SCH (20:48)
[2020-03-09] MEDS: ENOXAPARIN 30MG/0.3ML SYR SUBCUT SCH (20:48)
[2020-03-09] MEDS: ATORVASTATIN CALCIUM 20MG TABLET PO SCH (20:49)
[2020-03-10] VITALS (13 sets, daily range): BP systolic 94–166; BP diastolic 56–96
[2020-03-10] MEDS ORDERED: DIGOXIN 500MCG/2ML AMP IV SCH (01:45)
[2020-03-10] MEDS: DILTIAZEM HCL 125 MG in DEXT 5% WATER 100 ML IV SCH (01:46)
[2020-03-10] MEDS: HYDRALAZINE HCL 50MG TABLET PO SCH ×3 (05:46→22:00)
[2020-03-10] MEDS: SODIUM CHLORIDE 0.9% INJ 3ML FLUSH IVF SCH ×3 (06:10→23:56)
[2020-03-10] MEDS: BLOOD SUGAR DIAGNOSTIC STRIP TEST SCH ×4 (06:10→21:00)
[2020-03-10] MEDS: INSULIN LISPRO 100 UNITS/ML SUBCUT SCH ×4 (07:20→21:00)
[2020-03-10 07:51] LABS: VITAMIN B12 SERUM 1320 pg/mL (211-911)
[2020-03-10] MEDS: CALCIUM ACETATE 667MG CAPSULE PO SCH ×3 (08:00→17:25)
[2020-03-10 08:31] LABS: BASOPHILS % 0.5 % (0.0-2.0); EOSINOPHILS % 1.9 % (0.0-5.0); HEMATOCRIT. 37.5 % (42.0-52.0); HEMOGLOBIN. 12.9 g/dL (14.0-18.0); LYMPHOCYTES % 17.9 % (20.0-50.0); MEAN CORPUSCULAR HEMOGLOBIN 33.6 pg (28.0-32.0); MEAN CORPUSCULAR VOLUME 97.8 fL (80.0-94.0); MEAN PLATELET VOLUME 7.7 fl (7.4-10.4); MONOCYTES % 8.9 % (2.0-8.0); NEUTROPHILS % 70.8 % (40.0-76.0); PLATELET 146 x1000/uL (130-400); RED BLOOD CELL COUNT 3.83 mill/uL (4.7-6.1); RED CELL DISTRIBUTION WIDTH 13.2 % (11.6-14.6)
[2020-03-10 08:46] LABS: CHLORIDE 108 mEq/L (98-107)
[2020-03-10] MEDS: RISPERIDONE 1MG TABLET PO SCH (09:01)
[2020-03-10] MEDS: QUETIAPINE FUMARATE 25MG TABLET PO SCH ×2 (09:01→21:02)
[2020-03-10] MEDS: LOSARTAN POTASSIUM 50 MG TABLET PO SCH ×2 (09:01→21:01)
[2020-03-10] MEDS: CALCITRIOL 0.25MCG CAPSULE PO SCH (09:01)
[2020-03-10] MEDS: FLUTICASONE PROPIONATE 50MCG/SPRAY BOTTLE BOTHNSTRLS SCH ×2 (11:30→21:01)
[2020-03-10] MEDS: LORAZEPAM 2MG/ML CPJ IV PRN (16:34)
[2020-03-10] MEDS: ENOXAPARIN 30MG/0.3ML SYR SUBCUT SCH (21:01)
[2020-03-10] MEDS: ATORVASTATIN CALCIUM 20MG TABLET PO SCH (21:02)
[2020-03-11] VITALS (12 sets, daily range): BP systolic 93–159; BP diastolic 58–87
[2020-03-11] MEDS: DILTIAZEM HCL 125 MG in DEXT 5% WATER 100 ML IV SCH (03:12)
[2020-03-11 05:09] LABS: *BARBITURATES SCREEN URINE NEGATIVE (NEGATIVE); *BENZODIAZEPINES SCREEN URINE NEGATIVE (NEGATIVE); *COCAINE SCREEN URINE NEGATIVE (NEGATIVE); METHADONE URINE SCREEN NEGATIVE (NEGATIVE); OPIATES URINE SCREEN NEGATIVE (NEGATIVE)
[2020-03-11 05:10] LABS: *AMPHETAMINES SCREEN URINE NEGATIVE (NEGATIVE); CANNABINOID URINE SCREEN NEGATIVE (NEGATIVE); PHENCYCLIDINE URINE SCREEN NEGATIVE (NEGATIVE)
[2020-03-11] MEDS: SODIUM CHLORIDE 0.9% INJ 3ML FLUSH IVF SCH ×3 (05:23→21:53)
[2020-03-11] MEDS: HYDRALAZINE HCL 50MG TABLET PO SCH ×3 (05:24→22:00)
[2020-03-11] MEDS: BLOOD SUGAR DIAGNOSTIC STRIP TEST SCH ×4 (07:06→21:35)
[2020-03-11] MEDS: INSULIN LISPRO 100 UNITS/ML SUBCUT SCH ×4 (07:20→21:00)
[2020-03-11] MEDS: CALCIUM ACETATE 667MG CAPSULE PO SCH ×3 (07:53→16:24)
[2020-03-11] MEDS: FLUTICASONE PROPIONATE 50MCG/SPRAY BOTTLE BOTHNSTRLS SCH (07:53)
[2020-03-11] MEDS: LOSARTAN POTASSIUM 50 MG TABLET PO SCH ×2 (07:53→21:00)
[2020-03-11] MEDS: CALCITRIOL 0.25MCG CAPSULE PO SCH (07:54)
[2020-03-11] MEDS: QUETIAPINE FUMARATE 25MG TABLET PO SCH ×2 (07:54→21:00)
[2020-03-11] MEDS: RISPERIDONE 1MG TABLET PO SCH (07:54)
[2020-03-11 08:05] LABS: BASOPHILS % 0.5 % (0.0-2.0); EOSINOPHILS % 3.4 % (0.0-5.0); HEMATOCRIT. 36.2 % (42.0-52.0); HEMOGLOBIN. 12.4 g/dL (14.0-18.0); LYMPHOCYTES % 24.8 % (20.0-50.0); MEAN CORPUSCULAR HEMOGLOBIN 33.7 pg (28.0-32.0); MEAN CORPUSCULAR VOLUME 98.5 fL (80.0-94.0); MEAN PLATELET VOLUME 8.2 fl (7.4-10.4); MONOCYTES % 9.7 % (2.0-8.0); NEUTROPHILS % 61.6 % (40.0-76.0); PLATELET 140 x1000/uL (130-400); RED BLOOD CELL COUNT 3.67 mill/uL (4.7-6.1); RED CELL DISTRIBUTION WIDTH 13.5 % (11.6-14.6)
[2020-03-11 08:27] LABS: CHLORIDE 107 mEq/L (98-107)
[2020-03-11 08:36] LABS: PHOSPHORUS 2.8 mg/dL (2.5-4.9)
[2020-03-11] MEDS ORDERED: CEFTRIAXONE 1 G PREMIX 50 ML IV SCH (08:45)
[2020-03-11] MEDS: METOPROLOL TARTRATE 50MG TABLET PO SCH ×2 (09:51→21:00)
[2020-03-11] MEDS ORDERED: CEFTRIAXONE 1,000 MG in DEXTROSE 5% WATER 50 ML IV SCH (10:00)
[2020-03-11] MEDS: CEFTRIAXONE 1,000 MG in DEXTROSE 5% WATER 50 ML IV SCH (11:40)
[2020-03-11] MEDS: ENOXAPARIN 30MG/0.3ML SYR SUBCUT SCH (20:01)
[2020-03-11] MEDS: ATORVASTATIN CALCIUM 20MG TABLET PO SCH (21:00)
[2020-03-11] MEDS: LORAZEPAM 2MG/ML CPJ IV PRN (21:40)
[2020-03-12] VITALS (13 sets, daily range): BP systolic 90–158; BP diastolic 37–84
[2020-03-12] MEDS: HYDRALAZINE HCL 50MG TABLET PO SCH ×2 (06:20)
[2020-03-12] MEDS: SODIUM CHLORIDE 0.9% INJ 3ML FLUSH IVF SCH ×3 (06:21→22:13)
[2020-03-12] MEDS: BLOOD SUGAR DIAGNOSTIC STRIP TEST SCH ×4 (06:59→20:55)
[2020-03-12] MEDS: INSULIN LISPRO 100 UNITS/ML SUBCUT SCH ×4 (07:20→21:00)
[2020-03-12] MEDS: CALCIUM ACETATE 667MG CAPSULE PO SCH ×3 (08:08→17:30)
[2020-03-12] MEDS: QUETIAPINE FUMARATE 25MG TABLET PO SCH ×2 (08:08)
[2020-03-12] MEDS: LOSARTAN POTASSIUM 50 MG TABLET PO SCH ×2 (08:08→20:38)
[2020-03-12] MEDS: METOPROLOL TARTRATE 50MG TABLET PO SCH ×2 (08:08→20:39)
[2020-03-12] MEDS: RISPERIDONE 1MG TABLET PO SCH (08:08)
[2020-03-12] MEDS: CALCITRIOL 0.25MCG CAPSULE PO SCH (08:09)
[2020-03-12] MEDS: CEFTRIAXONE 1,000 MG in DEXTROSE 5% WATER 50 ML IV SCH (13:24)
[2020-03-12] MEDS: HYDRALAZINE HCL 25MG TABLET PO SCH ×2 (14:00→22:16)
[2020-03-12] MEDS: ENOXAPARIN 30MG/0.3ML SYR SUBCUT SCH (20:35)
[2020-03-12] MEDS: ATORVASTATIN CALCIUM 20MG TABLET PO SCH (20:38)
[2020-03-12] MEDS: QUETIAPINE FUMARATE 50MG TABLET PO SCH (20:39)
[2020-03-12] MEDS: LORAZEPAM 2MG/ML CPJ IV PRN (22:12)
[2020-03-13] VITALS (12 sets, daily range): BP systolic 112–158; BP diastolic 63–90
[2020-03-13] MEDS: LORAZEPAM 2MG/ML CPJ IV PRN ×2 (03:55→14:27)
[2020-03-13] MEDS: HYDRALAZINE HCL 25MG TABLET PO SCH ×3 (06:26→22:15)
[2020-03-13] MEDS: SODIUM CHLORIDE 0.9% INJ 3ML FLUSH IVF SCH ×3 (06:33→22:15)
[2020-03-13] MEDS: BLOOD SUGAR DIAGNOSTIC STRIP TEST SCH ×4 (06:49→20:40)
[2020-03-13] MEDS: INSULIN LISPRO 100 UNITS/ML SUBCUT SCH ×4 (07:20→20:41)
[2020-03-13] MEDS: CALCIUM ACETATE 667MG CAPSULE PO SCH ×3 (08:45→17:56)
[2020-03-13] MEDS: CALCITRIOL 0.25MCG CAPSULE PO SCH (08:45)
[2020-03-13] MEDS: METOPROLOL TARTRATE 50MG TABLET PO SCH ×2 (08:45→20:40)
[2020-03-13] MEDS: QUETIAPINE FUMARATE 50MG TABLET PO SCH ×2 (08:45→20:39)
[2020-03-13] MEDS: RISPERIDONE 1MG TABLET PO SCH ×2 (08:45→20:04)
[2020-03-13] MEDS: CEFTRIAXONE 1,000 MG in DEXTROSE 5% WATER 50 ML IV SCH (12:04)
[2020-03-13] MEDS: LOSARTAN POTASSIUM 50 MG TABLET PO SCH ×2 (12:04→20:39)
[2020-03-13] MEDS: ENOXAPARIN 30MG/0.3ML SYR SUBCUT SCH (20:05)
[2020-03-13] MEDS: ATORVASTATIN CALCIUM 20MG TABLET PO SCH (20:40)
[2020-03-14] VITALS (10 sets, daily range): BP systolic 94–145; BP diastolic 58–83
[2020-03-14] MEDS: HYDRALAZINE HCL 25MG TABLET PO SCH ×3 (06:00→21:37)
[2020-03-14] MEDS: SODIUM CHLORIDE 0.9% INJ 3ML FLUSH IVF SCH ×3 (06:22→21:37)
[2020-03-14] MEDS: INSULIN LISPRO 100 UNITS/ML SUBCUT SCH ×4 (07:20→21:00)
[2020-03-14 07:23] LABS: BASOPHILS % 0.5 % (0.0-2.0); EOSINOPHILS % 5.3 % (0.0-5.0); HEMATOCRIT. 36.6 % (42.0-52.0); HEMOGLOBIN. 12.4 g/dL (14.0-18.0); LYMPHOCYTES % 26.5 % (20.0-50.0); MEAN CORPUSCULAR HEMOGLOBIN 33.6 pg (28.0-32.0); MEAN CORPUSCULAR VOLUME 98.8 fL (80.0-94.0); MEAN PLATELET VOLUME 8.2 fl (7.4-10.4); MONOCYTES % 10.3 % (2.0-8.0); NEUTROPHILS % 57.4 % (40.0-76.0); PLATELET 126 x1000/uL (130-400); RED BLOOD CELL COUNT 3.71 mill/uL (4.7-6.1); RED CELL DISTRIBUTION WIDTH 13.3 % (11.6-14.6)
[2020-03-14] MEDS: QUETIAPINE FUMARATE 50MG TABLET PO SCH ×2 (07:51→21:37)
[2020-03-14] MEDS: METOPROLOL TARTRATE 50MG TABLET PO SCH ×2 (07:58→21:36)
[2020-03-14] MEDS: RISPERIDONE 1MG TABLET PO SCH ×2 (07:59→18:03)
[2020-03-14] MEDS: CALCITRIOL 0.25MCG CAPSULE PO SCH (07:59)
[2020-03-14] MEDS: CALCIUM ACETATE 667MG CAPSULE PO SCH ×3 (07:59→18:03)
[2020-03-14] MEDS: LOSARTAN POTASSIUM 50 MG TABLET PO SCH ×2 (08:02→21:37)
[2020-03-14] MEDS: LORAZEPAM 2MG/ML CPJ IV PRN (10:18)
[2020-03-14] MEDS: BLOOD SUGAR DIAGNOSTIC STRIP TEST SCH ×3 (11:50→21:37)
[2020-03-14] MEDS: CEFTRIAXONE 1,000 MG in DEXTROSE 5% WATER 50 ML IV SCH (15:52)
[2020-03-14] MEDS: ENOXAPARIN 30MG/0.3ML SYR SUBCUT SCH (21:36)
[2020-03-14] MEDS: ATORVASTATIN CALCIUM 20MG TABLET PO SCH (21:37)
[2020-03-15] VITALS (7 sets, daily range): BP systolic 132–178; BP diastolic 72–95
[2020-03-15] MEDS: SODIUM CHLORIDE 0.9% INJ 3ML FLUSH IVF SCH ×3 (05:50→21:01)
[2020-03-15] MEDS: HYDRALAZINE HCL 25MG TABLET PO SCH ×3 (05:50→21:00)
[2020-03-15] MEDS: BLOOD SUGAR DIAGNOSTIC STRIP TEST SCH ×4 (05:50→21:01)
[2020-03-15] MEDS: INSULIN LISPRO 100 UNITS/ML SUBCUT SCH ×4 (07:27→21:00)
[2020-03-15] MEDS: CALCIUM ACETATE 667MG CAPSULE PO SCH ×3 (09:20→17:20)
[2020-03-15] MEDS: RISPERIDONE 1MG TABLET PO SCH ×2 (09:21→17:20)
[2020-03-15] MEDS: METOPROLOL TARTRATE 50MG TABLET PO SCH ×2 (09:21→21:00)
[2020-03-15] MEDS: QUETIAPINE FUMARATE 50MG TABLET PO SCH ×2 (09:21→21:00)
[2020-03-15] MEDS: CALCITRIOL 0.25MCG CAPSULE PO SCH (09:21)
[2020-03-15] MEDS: LOSARTAN POTASSIUM 50 MG TABLET PO SCH ×2 (09:21→21:01)
[2020-03-15] MEDS: ACETAMINOPHEN 325MG TABLET PO PRN (11:50)
[2020-03-15] MEDS: CEFTRIAXONE 1,000 MG in DEXTROSE 5% WATER 50 ML IV SCH (13:29)
[2020-03-15] MEDS: DOCUSATE SODIUM 100MG CAPSULE PO PRN (17:20)
[2020-03-15] MEDS: ALPRAZOLAM 0.5 MG TABLET PO PRN (21:00)
[2020-03-15] MEDS: ATORVASTATIN CALCIUM 20MG TABLET PO SCH (21:00)
[2020-03-15] MEDS: ENOXAPARIN 30MG/0.3ML SYR SUBCUT SCH (21:01)
[2020-03-16 00:15] VITALS: BP 136/79
[2020-03-16 04:00] VITALS: BP 101/49
[2020-03-16] MEDS: HYDRALAZINE HCL 25MG TABLET PO SCH ×3 (06:00→21:12)
[2020-03-16] MEDS: SODIUM CHLORIDE 0.9% INJ 3ML FLUSH IVF SCH ×3 (06:15→21:14)
[2020-03-16] MEDS: BLOOD SUGAR DIAGNOSTIC STRIP TEST SCH ×4 (06:16→21:13)
[2020-03-16 06:54] LABS: BASOPHILS % 0.6 % (0.0-2.0); EOSINOPHILS % 4.9 % (0.0-5.0); HEMATOCRIT. 31.2 % (42.0-52.0); HEMOGLOBIN. 10.7 g/dL (14.0-18.0); LYMPHOCYTES % 26.4 % (20.0-50.0); MEAN CORPUSCULAR HEMOGLOBIN 34.1 pg (28.0-32.0); MEAN CORPUSCULAR VOLUME 99.6 fL (80.0-94.0); MEAN PLATELET VOLUME 8.3 fl (7.4-10.4); MONOCYTES % 8.1 % (2.0-8.0); PLATELET 116 x1000/uL (130-400); RED BLOOD CELL COUNT 3.13 mill/uL (4.7-6.1); RED CELL DISTRIBUTION WIDTH 13.1 % (11.6-14.6)
[2020-03-16] MEDS: INSULIN LISPRO 100 UNITS/ML SUBCUT SCH ×4 (07:50→21:00)
[2020-03-16 08:00] VITALS: BP 139/72
[2020-03-16] MEDS: LOSARTAN POTASSIUM 50 MG TABLET PO SCH ×2 (08:50→21:13)
[2020-03-16] MEDS: METOPROLOL TARTRATE 50MG TABLET PO SCH ×2 (08:51→21:00)
[2020-03-16] MEDS: CALCITRIOL 0.25MCG CAPSULE PO SCH (08:52)
[2020-03-16] MEDS: CALCIUM ACETATE 667MG CAPSULE PO SCH ×3 (08:52→17:50)
[2020-03-16] MEDS: QUETIAPINE FUMARATE 50MG TABLET PO SCH ×2 (08:52→21:12)
[2020-03-16] MEDS: DOCUSATE SODIUM 100MG CAPSULE PO PRN (08:52)
[2020-03-16] MEDS: RISPERIDONE 1MG TABLET PO SCH ×2 (09:28→17:00)
[2020-03-16 12:33] VITALS: BP 96/55
[2020-03-16 16:00] VITALS: BP 124/68
[2020-03-16 20:18] VITALS: BP 143/78
[2020-03-16] MEDS: ATORVASTATIN CALCIUM 20MG TABLET PO SCH (21:12)
[2020-03-16] MEDS: ENOXAPARIN 30MG/0.3ML SYR SUBCUT SCH (21:13)
[2020-03-17] VITALS: BP 175/78
[2020-03-17] MEDS: ALPRAZOLAM 0.5 MG TABLET PO PRN ×2 (01:50→13:54)
[2020-03-17 04:00] VITALS: BP 152/69
[2020-03-17] MEDS: BLOOD SUGAR DIAGNOSTIC STRIP TEST SCH ×2 (06:33→13:08)
[2020-03-17] MEDS: SODIUM CHLORIDE 0.9% INJ 3ML FLUSH IVF SCH ×2 (06:33→13:14)
[2020-03-17] MEDS: HYDRALAZINE HCL 25MG TABLET PO SCH ×2 (06:33→13:14)
[2020-03-17] MEDS: INSULIN LISPRO 100 UNITS/ML SUBCUT SCH ×2 (07:46→12:50)
[2020-03-17 08:00] VITALS: BP 131/72
[2020-03-17 08:19] VITALS: BP 131/72
[2020-03-17] MEDS: CALCIUM ACETATE 667MG CAPSULE PO SCH ×2 (08:51→13:13)
[2020-03-17] MEDS: LOSARTAN POTASSIUM 50 MG TABLET PO SCH (08:51)
[2020-03-17] MEDS: CALCITRIOL 0.25MCG CAPSULE PO SCH (08:51)
[2020-03-17] MEDS: QUETIAPINE FUMARATE 50MG TABLET PO SCH (08:51)
[2020-03-17] MEDS: RISPERIDONE 1MG TABLET PO SCH (08:51)
[2020-03-17] MEDS: METOPROLOL TARTRATE 50MG TABLET PO SCH (08:52)
[2020-03-17 12:00] VITALS: BP 142/81
[2020-03-17] MEDS ORDERED: ALPR0.5T PO (13:34)
[2020-03-17] MEDS ORDERED: ATOR20TA PO (13:34)
[2020-03-17 15:27] VITALS: BP 142/81
== END 2020-03-17 16:15 | disposition home or self-care (01) | DRG 682 ==
LOC: ER 16:21 → EDBEDREQTM 17:58 → EDBEDREQ 17:58 → ENRESERV 21:27 → 8WST 21:58 → 5WST 03-10 00:13 → 8WST 03-10 00:14 → 3WST 03-10 01:20 → 6WST 03-14 16:47
PROVIDERS: ADMIT Specialist; ATTEND Specialist
PROC: 5A1D70Z Performance of Urinary Filtration, Intermittent, Less than 6 Hours Per Day (ICD-10-PCS; principal; 2020-03-08)
PROC: 5A1D70Z Performance of Urinary Filtration, Intermittent, Less than 6 Hours Per Day (ICD-10-PCS; 2020-03-10)
PROC: 5A1D70Z Performance of Urinary Filtration, Intermittent, Less than 6 Hours Per Day (ICD-10-PCS; 2020-03-13)
PROC: 5A1D70Z Performance of Urinary Filtration, Intermittent, Less than 6 Hours Per Day (ICD-10-PCS; 2020-03-16)
PROC: 4A00X4Z Measurement of Central Nervous Electrical Activity, External Approach (ICD-10-PCS; 2020-03-16)
DX: I12.0 Hypertensive chronic kidney disease with stage 5 chronic kidney disease or end stage renal disease (principal); G93.41 Metabolic encephalopathy; N18.6 End stage renal disease; F23 Brief psychotic disorder; N25.81 Secondary hyperparathyroidism of renal origin; I16.0 Hypertensive urgency; I48.0 Paroxysmal atrial fibrillation; B19.20 Unspecified viral hepatitis C without hepatic coma; E11.22 Type 2 diabetes mellitus with diabetic chronic kidney disease; E11.40 Type 2 diabetes mellitus with diabetic neuropathy, unspecified; E78.5 Hyperlipidemia, unspecified; F03.90 Unspecified dementia, unspecified severity, without behavioral disturbance, psychotic disturbance, mood disturbance, and anxiety; F41.9 Anxiety disorder, unspecified; G89.29 Other chronic pain; I49.3 Ventricular premature depolarization; D63.8 Anemia in other chronic diseases classified elsewhere; M54.5 Low back pain; Z83.3 Family history of diabetes mellitus; Z99.2 Dependence on renal dialysis; Z86.73 Personal history of transient ischemic attack (TIA), and cerebral infarction without residual deficits; Z80.41 Family history of malignant neoplasm of ovary; R41.0 Disorientation, unspecified
CPT/HCPCS: 36415; 70551; 71045; 80048; 80053; 80305; 82607; 82962; 83036; 83735; 83880; 83970; 84100; 84145; 84484; 85025; 93005; 93306; 97116; 97162; 99285; J0360; J0696; J1160; J1650; J1815; J2060; J3490; J7060

== ENCOUNTER 2020-03-18 14:09 | Emergency (ER) | payer BC ==
[~2020-03-18] VITALS: Ht 182.9 cm; Wt 82.0 kg
[~2020-03-18 14:09] MED LIST changes: -ALLO100T MT; +ALPR0.5T PO; -AMLO10TA80 PO; +ATOR20TA PO; -DOXA4TAB3 PO; -HYDR-4135 PO; -LOSA25TA3 PO; -REPA0.5T5 PO; -TORS20TA4 PO
[2020-03-18] MEDS ORDERED: LORAZEPAM 2MG/ML CPJ IM ONE (14:30)
[2020-03-18] MEDS ORDERED: OLANZAPINE 10 MG/VIAL IM ONE (14:30)
[2020-03-18 14:49] LABS: BASOPHILS % 0.9 % (0.0-2.0); EOSINOPHILS % 4.6 % (0.0-5.0); HEMATOCRIT. 32.4 % (42.0-52.0); HEMOGLOBIN. 11.1 g/dL (14.0-18.0); LYMPHOCYTES % 23.6 % (20.0-50.0); MEAN CORPUSCULAR HEMOGLOBIN 33.9 pg (28.0-32.0); MEAN CORPUSCULAR VOLUME 98.6 fL (80.0-94.0); MONOCYTES % 8.9 % (2.0-8.0); PLATELET 108 x1000/uL (130-400); RED BLOOD CELL COUNT 3.29 mill/uL (4.7-6.1); RED CELL DISTRIBUTION WIDTH 12.7 % (11.6-14.6)
[2020-03-18 14:58] LABS: INR 1.1; PROTHROMBIN TIME 11.8 sec (9.6-11.0)
[2020-03-18 15:03] LABS: CHLORIDE 102 mEq/L (98-107)
[2020-03-18 15:07] LABS: ETHANOL BLOOD < 10 mg/dL
[2020-03-18 15:08] LABS: PHOSPHORUS 4.6 mg/dL (2.5-4.9)
[2020-03-18] MEDS ORDERED: DEXTROSE 50% WATER 50ML SYRINGE IV PRN (16:45)
[2020-03-18] MEDS ORDERED: ALPRAZOLAM 0.5 MG TABLET PO PRN (16:45)
[2020-03-18] MEDS ORDERED: CLONIDINE 0.1MG TABLET PO PRN (16:45)
[2020-03-18] MEDS ORDERED: ACETAMINOPHEN 325MG TABLET PO PRN (16:45)
[2020-03-18] MEDS ORDERED: GUAIFENESIN 200MG/10ML SUGAR FREE UDC PO PRN (16:45)
[2020-03-18] MEDS ORDERED: IPRATROPIUM/ALBUTEROL 0.5-3(2.5)MG/3ML NEB HHN PRN (16:45)
[2020-03-18] MEDS ORDERED: DOCUSATE SODIUM 100MG CAPSULE PO PRN (16:45)
[2020-03-18] MEDS ORDERED: DIPHENHYDRAMINE 50MG/ML VIAL IV PRN (16:45)
[2020-03-18] MEDS: BLOOD SUGAR DIAGNOSTIC STRIP TEST SCH ×2 (17:00→21:08)
[2020-03-18] MEDS ORDERED: HYDROCODONE/ACETAMINOPHEN 5/325MG TABLET PO PRN (17:00)
[2020-03-18] MEDS ORDERED: MORPHINE SULFATE 2 MG/ML CPJ (NOT FOR IM USE) IV PRN (17:00)
[2020-03-18] MEDS ORDERED: LOSARTAN POTASSIUM 50 MG TABLET PO SCH (17:30)
[2020-03-18] MEDS ORDERED: HYDRALAZINE 20MG/ML VIAL IV ONE (18:30)
[2020-03-18] MEDS ORDERED: CLONIDINE 0.1MG TABLET PO ONE (19:00)
[2020-03-18] MEDS: INSULIN LISPRO 100 UNITS/ML SUBCUT SCH ×2 (20:23→21:00)
[2020-03-18] MEDS ORDERED: ATORVASTATIN CALCIUM 20MG TABLET PO SCH (21:00)
[2020-03-18] MEDS ORDERED: RISPERIDONE 1MG TABLET PO SCH (21:00)
[2020-03-18] MEDS ORDERED: METOPROLOL TARTRATE 50MG TABLET PO SCH (21:00)
[2020-03-18] MEDS ORDERED: HYDRALAZINE HCL 25MG TABLET PO SCH (22:00)
[2020-03-18 22:56] VITALS: BP 174/68
== END 2020-03-18 23:13 | disposition left against medical advice (07) ==
LOC: ER 14:10 → EDBEDREQ 16:42 → ENRESERV 21:11 → CANRESERV 21:11 → CANBEDREQ 23:06 → ER 23:13
DX: G92 Toxic encephalopathy (principal); R03.0 Elevated blood-pressure reading, without diagnosis of hypertension; E11.22 Type 2 diabetes mellitus with diabetic chronic kidney disease; N18.6 End stage renal disease; R45.1 Restlessness and agitation; Z99.2 Dependence on renal dialysis; Z79.899 Other long term (current) drug therapy
CPT/HCPCS: 36415; 70450; 71045; 80053; 80320; 82140; 82962; 83690; 83735; 84100; 84443; 84484; 85025; 85610; 93005; 96372; 96374; 99285; J0360; J2060; J3490; G0480

== ENCOUNTER 2021-01-17 16:50 | Inpatient (IN) | payer BC ==
[~2021-01-17] VITALS: Ht 185.4 cm; Wt 90.7 kg
[2021-01-17] MEDS ORDERED: DOCUSATE SODIUM 100MG CAPSULE PO PRN (20:30)
[2021-01-17] MEDS ORDERED: ACETAMINOPHEN 325MG TABLET PO PRN (20:30)
[2021-01-17] MEDS ORDERED: IPRATROPIUM/ALBUTEROL 0.5-3(2.5)MG/3ML NEB HHN PRN (20:30)
[2021-01-17 20:38] LABS: BASOPHILS % 0.7 % (0.0-2.0); EOSINOPHILS % 3.3 % (0.0-5.0); HEMATOCRIT. 34.9 % (42.0-52.0); HEMOGLOBIN. 12.3 g/dL (14.0-18.0); LYMPHOCYTES % 20.3 % (20.0-50.0); MEAN CORPUSCULAR HEMOGLOBIN 33.5 pg (28.0-32.0); MEAN CORPUSCULAR VOLUME 95.2 fL (80.0-94.0); MEAN PLATELET VOLUME 7.8 fl (7.4-10.4); NEUTROPHILS % 65.7 % (40.0-76.0); PLATELET 143 x1000/uL (130-400); RED BLOOD CELL COUNT 3.67 mill/uL (4.7-6.1); RED CELL DISTRIBUTION WIDTH 13.8 % (11.6-14.6)
[2021-01-17] MEDS ORDERED: CLONIDINE 0.1MG TABLET PO PRN (20:45)
[2021-01-17 20:47] LABS: CHLORIDE 99 mEq/L (98-107)
[2021-01-17] MEDS ORDERED: ATORVASTATIN CALCIUM 20MG TABLET PO SCH (21:00)
[2021-01-17] MEDS ORDERED: HYDRALAZINE HCL 50MG TABLET PO SCH (21:00)
[2021-01-17] MEDS: AMLODIPINE 10MG TABLET PO SCH (21:08)
[2021-01-17] MEDS: HYDRALAZINE HCL 50MG TABLET PO SCH (21:14)
[2021-01-17] MEDS: RISPERIDONE 1MG TABLET PO SCH (21:14)
[2021-01-17] MEDS: SODIUM CHLORIDE 0.9% INJ 3ML FLUSH IVF SCH (21:41)
[2021-01-18] MEDS: SODIUM CHLORIDE 0.9% INJ 3ML FLUSH IVF SCH ×3 (06:00→23:02)
[2021-01-18] MEDS ORDERED: ENOXAPARIN 40MG/0.4ML SYR SUBCUT SCH (09:00)
[2021-01-18 09:54] VITALS: BP 168/84
[2021-01-18] MEDS: ENOXAPARIN 30MG/0.3ML SYR SUBCUT SCH (10:53)
[2021-01-18] MEDS: AMLODIPINE 10MG TABLET PO SCH (10:55)
[2021-01-18] MEDS: CALCIUM ACETATE 667MG CAPSULE PO SCH ×3 (10:55→17:40)
[2021-01-18] MEDS: FOLIC ACID/VITAMIN B COMP W-C TABLET PO SCH (10:56)
[2021-01-18] MEDS: RISPERIDONE 1MG TABLET PO SCH ×2 (10:56→23:01)
[2021-01-18] MEDS: FERROUS SULFATE 325MG TABLET PO SCH ×2 (10:56→17:41)
[2021-01-18] MEDS: HYDRALAZINE HCL 50MG TABLET PO SCH ×2 (10:57→22:35)
[2021-01-18 12:00] VITALS: BP 98/60
[2021-01-18] MEDS ORDERED: DEXTROSE 50% WATER 50ML SYRINGE IV PRN (12:00)
[2021-01-18] MEDS: BLOOD SUGAR DIAGNOSTIC STRIP TEST SCH ×3 (12:20→21:53)
[2021-01-18] MEDS: INSULIN LISPRO 100 UNITS/ML SUBCUT SCH ×3 (13:36→22:22)
[2021-01-18 14:20] LABS: HEPATITIS B SURFACE ANTIGEN NEGATIVE
[2021-01-18 14:48] LABS: HEPATITIS A AB IGM NEGATIVE (NEGATIVE)
[2021-01-18] MEDS: LORAZEPAM 2MG/ML CPJ IV PRN ×2 (15:28→20:41)
[2021-01-18 16:00] VITALS: BP 137/83
[2021-01-18] MEDS ORDERED: DOCU-138 MT (16:47)
[2021-01-18] MEDS ORDERED: CLON0.2T PO (16:47)
[2021-01-18] MEDS ORDERED: AMLO10TA80 PO (16:47)
[2021-01-18] MEDS ORDERED: MEMA5TAB42 PO (16:47)
[2021-01-18] MEDS ORDERED: OLAN10TA19 PO (16:47)
[2021-01-18] MEDS ORDERED: LORA-249 PO (16:47)
[2021-01-18 20:00] VITALS: BP 172/87
[2021-01-18 20:46] LABS: VITAMIN B12 SERUM 1336 pg/mL (211-911)
[2021-01-18] MEDS ORDERED: NON FORMULARY PATIENT HOME MED OP SCH (21:00)
[2021-01-18] MEDS: BRIMONIDINE 0.2% OPHTH DROPS 5ML EACHEYE SCH (22:22)
[2021-01-18] MEDS: TIMOLOL MALEATE 0.5% OPHTH DROPS 5ML EACHEYE SCH (22:22)
[2021-01-18] MEDS: OLANZAPINE 10MG TABLET PO SCH (23:01)
[2021-01-18] MEDS: MEMANTINE HCL 5MG TABLET PO SCH (23:04)
[2021-01-19] VITALS: BP 154/78
[2021-01-19] MEDS: LORAZEPAM 2MG/ML CPJ IV PRN ×2 (01:16→15:03)
[2021-01-19 04:00] VITALS: BP 150/75
[2021-01-19] MEDS: SODIUM CHLORIDE 0.9% INJ 3ML FLUSH IVF SCH ×3 (06:33→21:31)
[2021-01-19] MEDS: BLOOD SUGAR DIAGNOSTIC STRIP TEST SCH ×4 (06:40→21:26)
[2021-01-19] MEDS: INSULIN LISPRO 100 UNITS/ML SUBCUT SCH ×4 (07:50→21:25)
[2021-01-19 08:00] VITALS: BP 171/98
[2021-01-19] MEDS: CALCIUM ACETATE 667MG CAPSULE PO SCH ×3 (08:19→17:05)
[2021-01-19] MEDS: FOLIC ACID/VITAMIN B COMP W-C TABLET PO SCH (08:20)
[2021-01-19] MEDS: HYDRALAZINE HCL 50MG TABLET PO SCH ×3 (08:21→17:05)
[2021-01-19] MEDS: FERROUS SULFATE 325MG TABLET PO SCH ×2 (08:22→17:06)
[2021-01-19] MEDS: MEMANTINE HCL 5MG TABLET PO SCH ×2 (08:22→21:21)
[2021-01-19] MEDS: OLANZAPINE 10MG TABLET PO SCH ×2 (08:23→21:21)
[2021-01-19] MEDS: ENOXAPARIN 30MG/0.3ML SYR SUBCUT SCH (08:23)
[2021-01-19] MEDS: AMLODIPINE 10MG TABLET PO SCH (08:23)
[2021-01-19] MEDS: RISPERIDONE 1MG TABLET PO SCH ×2 (08:23→21:21)
[2021-01-19] MEDS: TIMOLOL MALEATE 0.5% OPHTH DROPS 5ML EACHEYE SCH ×2 (08:25→21:22)
[2021-01-19] MEDS: BRIMONIDINE 0.2% OPHTH DROPS 5ML EACHEYE SCH ×2 (08:25→21:23)
[2021-01-19 12:00] VITALS: BP 160/86
[2021-01-19 20:00] VITALS: BP 154/84
[2021-01-19] MEDS: HYDROXYZINE 10 MG TABLET PO SCH (21:33)
[2021-01-20] VITALS: BP 144/79
[2021-01-20 04:00] VITALS: BP 186/98
[2021-01-20] MEDS: SODIUM CHLORIDE 0.9% INJ 3ML FLUSH IVF SCH ×3 (04:58→22:32)
[2021-01-20] MEDS: CLONIDINE 0.1MG TABLET PO PRN (04:59)
[2021-01-20 05:14] LABS: CLARITY URINE CLEAR (CLEAR); COLOR URINE YELLOW (YELLOW); KETONES URINE NEGATIVE (NEGATIVE); LEUKOCYTE ESTERASE URINE NEGATIVE (NEGATIVE); NITRITE URINE NEGATIVE (NEGATIVE); OCCULT BLOOD URINE NEGATIVE (NEGATIVE); PH URINE >=9.0 (4.5-8.0); PROTEIN URINE 3+ (NEGATIVE); SPECIFIC GRAVITY URINE 1.015 (1.005-1.030); UROBILINOGEN URINE 0.2 E.U./dL (0.2-1.0)
[2021-01-20 05:22] LABS: *AMPHETAMINES SCREEN URINE NEGATIVE (NEGATIVE); *BARBITURATES SCREEN URINE NEGATIVE (NEGATIVE)
[2021-01-20 05:23] LABS: *BENZODIAZEPINES SCREEN URINE NEGATIVE (NEGATIVE); *COCAINE SCREEN URINE NEGATIVE (NEGATIVE); CANNABINOID URINE SCREEN NEGATIVE (NEGATIVE); METHADONE URINE SCREEN NEGATIVE (NEGATIVE); OPIATES URINE SCREEN NEGATIVE (NEGATIVE); PHENCYCLIDINE URINE SCREEN NEGATIVE (NEGATIVE)
[2021-01-20] MEDS: HYDROXYZINE 10 MG TABLET PO SCH ×4 (06:03→22:30)
[2021-01-20] MEDS: BLOOD SUGAR DIAGNOSTIC STRIP TEST SCH ×4 (06:41→21:00)
[2021-01-20] MEDS: INSULIN LISPRO 100 UNITS/ML SUBCUT SCH ×4 (07:50→22:46)
[2021-01-20] MEDS: CALCIUM ACETATE 667MG CAPSULE PO SCH ×3 (07:50→18:10)
[2021-01-20] MEDS: FERROUS SULFATE 325MG TABLET PO SCH ×2 (07:50→18:10)
[2021-01-20 08:00] VITALS: BP 177/89
[2021-01-20 08:52] LABS: BASOPHILS % 0.7 % (0.0-2.0); EOSINOPHILS % 4.6 % (0.0-5.0); HEMATOCRIT. 31.1 % (42.0-52.0); HEMOGLOBIN. 10.8 g/dL (14.0-18.0); LYMPHOCYTES % 18.4 % (20.0-50.0); MEAN CORPUSCULAR HEMOGLOBIN 33.3 pg (28.0-32.0); MEAN CORPUSCULAR VOLUME 95.8 fL (80.0-94.0); MEAN PLATELET VOLUME 8.1 fl (7.4-10.4); MONOCYTES % 9.8 % (2.0-8.0); NEUTROPHILS % 66.5 % (40.0-76.0); PLATELET 149 x1000/uL (130-400); RED BLOOD CELL COUNT 3.25 mill/uL (4.7-6.1)
[2021-01-20] MEDS: MEMANTINE HCL 5MG TABLET PO SCH ×2 (09:00→22:31)
[2021-01-20] MEDS: FOLIC ACID/VITAMIN B COMP W-C TABLET PO SCH (09:00)
[2021-01-20] MEDS: OLANZAPINE 10MG TABLET PO SCH (09:00)
[2021-01-20] MEDS: HYDRALAZINE HCL 50MG TABLET PO SCH ×3 (09:00→17:00)
[2021-01-20] MEDS: TIMOLOL MALEATE 0.5% OPHTH DROPS 5ML EACHEYE SCH ×2 (09:00→22:30)
[2021-01-20] MEDS: BRIMONIDINE 0.2% OPHTH DROPS 5ML EACHEYE SCH ×2 (09:00→22:30)
[2021-01-20] MEDS: RISPERIDONE 1MG TABLET PO SCH (09:00)
[2021-01-20] MEDS: AMLODIPINE 10MG TABLET PO SCH (09:00)
[2021-01-20 09:17] LABS: PHOSPHORUS 3.4 mg/dL (2.5-4.9)
[2021-01-20] MEDS ORDERED: IPRATROPIUM/ALBUTEROL 0.5-3(2.5)MG/3ML NEB HHN PRN (11:00)
[2021-01-20 12:00] VITALS: BP 167/81
[2021-01-20 12:01] LABS: BG BASE EXCESS 3.5 mmol/L (-2.0-2.0); BG CARBOXYHEMOGLOBIN 0.3 % (0.5-1.5); BG DEOXYHEMOGLOBIN 5.9 % (0.0-5.0); BG FRACTION INSPIRED OXYGEN 21; BG HCO3 ACT 27.1 mmol/L (22.0-26.0); BG METHEMOGLOBIN 0.3 % (0.0-1.5); BG OXYGEN SATURATION 94.1 % (92.0-98.5); BG OXYHEMOGLOBIN 93.5 % (94.0-97.0); BG PCO2 37.3 mmHg (35.0-45.0); BG PH 7.479 (7.350-7.450); BG SAMPLE SITE RIGHT RADIAL; BG TOTAL HEMOGLOBIN 11.4 g/dL (12.0-18.0); BG VENT MODE ROOM AIR
[2021-01-20] MEDS: ENOXAPARIN 30MG/0.3ML SYR SUBCUT SCH (15:37)
[2021-01-20 15:45] LABS: TOTAL IRON BINDING CAPACITY 180 ug/dL (250-450)
[2021-01-20 16:00] VITALS: BP 163/87
[2021-01-20 16:02] LABS: FERRITIN 772 ng/mL (22-322)
[2021-01-20 16:09] LABS: FOLIC ACID (FOLATE) SERUM > 20.00 ng/mL (>5.38)
[2021-01-20 16:10] LABS: VITAMIN B12 SERUM 1258 pg/mL (211-911)
[2021-01-20 20:00] VITALS: BP 107/64
[2021-01-20] MEDS: OLANZAPINE 2.5MG TABLET PO SCH (22:29)
[2021-01-20] MEDS: RISPERIDONE 0.5MG TABLET PO SCH (22:32)
[2021-01-21] VITALS: BP 139/77
[2021-01-21 04:00] VITALS: BP 161/82
[2021-01-21] MEDS: CLONIDINE 0.1MG TABLET PO PRN (04:04)
[2021-01-21] MEDS: SODIUM CHLORIDE 0.9% INJ 3ML FLUSH IVF SCH ×3 (06:35→22:05)
[2021-01-21] MEDS: BLOOD SUGAR DIAGNOSTIC STRIP TEST SCH ×4 (06:52→21:00)
[2021-01-21] MEDS: INSULIN LISPRO 100 UNITS/ML SUBCUT SCH ×4 (07:50→22:08)
[2021-01-21 08:00] VITALS: BP 173/90
[2021-01-21] MEDS: FERROUS SULFATE 325MG TABLET PO SCH ×2 (10:01→17:52)
[2021-01-21] MEDS: RISPERIDONE 0.5MG TABLET PO SCH (10:01)
[2021-01-21] MEDS: HYDRALAZINE HCL 50MG TABLET PO SCH (10:01)
[2021-01-21] MEDS: FOLIC ACID/VITAMIN B COMP W-C TABLET PO SCH (10:01)
[2021-01-21] MEDS: MEMANTINE HCL 5MG TABLET PO SCH ×2 (10:01→22:04)
[2021-01-21] MEDS: CALCIUM ACETATE 667MG CAPSULE PO SCH ×3 (10:01→17:52)
[2021-01-21] MEDS: AMLODIPINE 10MG TABLET PO SCH (10:02)
[2021-01-21] MEDS: OLANZAPINE 2.5MG TABLET PO SCH (10:11)
[2021-01-21] MEDS: BRIMONIDINE 0.2% OPHTH DROPS 5ML EACHEYE SCH ×2 (10:15→22:04)
[2021-01-21] MEDS: TIMOLOL MALEATE 0.5% OPHTH DROPS 5ML EACHEYE SCH ×2 (10:15→22:04)
[2021-01-21] MEDS: ENOXAPARIN 30MG/0.3ML SYR SUBCUT SCH (10:18)
[2021-01-21 12:00] VITALS: BP 124/63
[2021-01-21] MEDS: HYDRALAZINE HCL 25MG TABLET PO SCH ×2 (12:37→17:52)
[2021-01-21 16:00] VITALS: BP 140/72
[2021-01-21 20:00] VITALS: BP 131/70
[2021-01-21] MEDS: OLANZAPINE 5MG TABLET PO SCH (22:02)
[2021-01-21] MEDS: RISPERIDONE 0.25MG TABLET PO SCH (22:03)
[2021-01-21] MEDS: HYDROXYZINE 10 MG TABLET PO SCH (22:03)
[2021-01-22] VITALS: BP 138/71
[2021-01-22 04:00] VITALS: BP 150/73
[2021-01-22] MEDS: SODIUM CHLORIDE 0.9% INJ 3ML FLUSH IVF SCH ×3 (05:51→22:08)
[2021-01-22 06:35] LABS: BASOPHILS % 0.7 % (0.0-2.0); EOSINOPHILS % 5.3 % (0.0-5.0); HEMATOCRIT. 35.1 % (42.0-52.0); LYMPHOCYTES % 22.2 % (20.0-50.0); MEAN CORPUSCULAR HEMOGLOBIN 32.7 pg (28.0-32.0); MEAN CORPUSCULAR VOLUME 95.4 fL (80.0-94.0); MEAN PLATELET VOLUME 7.9 fl (7.4-10.4); MONOCYTES % 10.2 % (2.0-8.0); NEUTROPHILS % 61.6 % (40.0-76.0); PLATELET 180 x1000/uL (130-400); RED BLOOD CELL COUNT 3.68 mill/uL (4.7-6.1); RED CELL DISTRIBUTION WIDTH 13.9 % (11.6-14.6)
[2021-01-22] MEDS: BLOOD SUGAR DIAGNOSTIC STRIP TEST SCH ×4 (06:36→21:00)
[2021-01-22] MEDS: INSULIN LISPRO 100 UNITS/ML SUBCUT SCH ×4 (07:50→21:00)
[2021-01-22 08:00] VITALS: BP 150/75
[2021-01-22] MEDS: FOLIC ACID/VITAMIN B COMP W-C TABLET PO SCH (08:48)
[2021-01-22] MEDS: FERROUS SULFATE 325MG TABLET PO SCH ×2 (08:48→17:59)
[2021-01-22] MEDS: CALCIUM ACETATE 667MG CAPSULE PO SCH ×3 (08:48→17:59)
[2021-01-22] MEDS: RISPERIDONE 0.25MG TABLET PO SCH ×2 (08:50→22:07)
[2021-01-22] MEDS: MEMANTINE HCL 5MG TABLET PO SCH ×2 (08:50→22:07)
[2021-01-22] MEDS: OLANZAPINE 5MG TABLET PO SCH ×2 (08:50→22:07)
[2021-01-22] MEDS: TIMOLOL MALEATE 0.5% OPHTH DROPS 5ML EACHEYE SCH ×2 (08:50→22:09)
[2021-01-22] MEDS: BRIMONIDINE 0.2% OPHTH DROPS 5ML EACHEYE SCH ×2 (08:50→22:09)
[2021-01-22] MEDS: HYDRALAZINE HCL 25MG TABLET PO SCH ×3 (08:50→17:59)
[2021-01-22] MEDS: ENOXAPARIN 30MG/0.3ML SYR SUBCUT SCH (08:51)
[2021-01-22] MEDS: AMLODIPINE 10MG TABLET PO SCH (11:08)
[2021-01-22 12:00] VITALS: BP 137/68
[2021-01-22 16:00] VITALS: BP 117/65
[2021-01-22 20:00] VITALS: BP 147/71
[2021-01-22] MEDS: HYDROXYZINE 10 MG TABLET PO SCH (22:07)
[2021-01-23] VITALS: BP 140/76
[2021-01-23 04:00] VITALS: BP 172/82
[2021-01-23] MEDS: CLONIDINE 0.1MG TABLET PO PRN ×2 (05:02→21:40)
[2021-01-23] MEDS: SODIUM CHLORIDE 0.9% INJ 3ML FLUSH IVF SCH ×3 (05:02→21:44)
[2021-01-23] MEDS: CALCIUM ACETATE 667MG CAPSULE PO SCH ×3 (07:50→16:56)
[2021-01-23] MEDS: INSULIN LISPRO 100 UNITS/ML SUBCUT SCH ×4 (07:50→21:41)
[2021-01-23] MEDS: FERROUS SULFATE 325MG TABLET PO SCH ×2 (07:50→16:56)
[2021-01-23] MEDS: BLOOD SUGAR DIAGNOSTIC STRIP TEST SCH ×4 (07:51→20:37)
[2021-01-23 08:00] VITALS: BP 146/83
[2021-01-23] MEDS ORDERED: IOHEXOL-300 100 ML BOTTLE ONE (09:04)
[2021-01-23] MEDS: RISPERIDONE 0.25MG TABLET PO SCH ×2 (09:11→21:39)
[2021-01-23] MEDS: MEMANTINE HCL 5MG TABLET PO SCH ×2 (09:11→21:39)
[2021-01-23] MEDS: FOLIC ACID/VITAMIN B COMP W-C TABLET PO SCH (09:11)
[2021-01-23] MEDS: OLANZAPINE 5MG TABLET PO SCH ×2 (09:11→21:44)
[2021-01-23] MEDS: BRIMONIDINE 0.2% OPHTH DROPS 5ML EACHEYE SCH ×2 (09:11→21:40)
[2021-01-23] MEDS: TIMOLOL MALEATE 0.5% OPHTH DROPS 5ML EACHEYE SCH ×2 (09:11→21:40)
[2021-01-23] MEDS: ENOXAPARIN 30MG/0.3ML SYR SUBCUT SCH (09:13)
[2021-01-23] MEDS: HYDRALAZINE HCL 25MG TABLET PO SCH ×3 (10:06→17:00)
[2021-01-23] MEDS: AMLODIPINE 10MG TABLET PO SCH (10:07)
[2021-01-23 12:00] VITALS: BP 134/65
[2021-01-23 16:00] VITALS: BP 145/67
[2021-01-23 20:00] VITALS: BP 165/78
[2021-01-23] MEDS: HYDROXYZINE 10 MG TABLET PO SCH (21:39)
[2021-01-24] VITALS: BP 133/78
[2021-01-24 04:00] VITALS: BP 123/78
[2021-01-24] MEDS: SODIUM CHLORIDE 0.9% INJ 3ML FLUSH IVF SCH ×3 (05:29→21:00)
[2021-01-24] MEDS: INSULIN LISPRO 100 UNITS/ML SUBCUT SCH ×4 (06:26→20:48)
[2021-01-24] MEDS: BLOOD SUGAR DIAGNOSTIC STRIP TEST SCH ×4 (06:26→20:47)
[2021-01-24 08:00] VITALS: BP 160/80
[2021-01-24] MEDS: BRIMONIDINE 0.2% OPHTH DROPS 5ML EACHEYE SCH ×2 (08:44→20:45)
[2021-01-24] MEDS: FERROUS SULFATE 325MG TABLET PO SCH ×2 (08:44→17:52)
[2021-01-24] MEDS: TIMOLOL MALEATE 0.5% OPHTH DROPS 5ML EACHEYE SCH ×2 (08:44→20:45)
[2021-01-24] MEDS: FOLIC ACID/VITAMIN B COMP W-C TABLET PO SCH (08:45)
[2021-01-24] MEDS: AMLODIPINE 10MG TABLET PO SCH (08:45)
[2021-01-24] MEDS: OLANZAPINE 5MG TABLET PO SCH ×2 (08:45→20:46)
[2021-01-24] MEDS: HYDRALAZINE HCL 25MG TABLET PO SCH ×3 (08:45→17:55)
[2021-01-24] MEDS: MEMANTINE HCL 5MG TABLET PO SCH ×2 (08:45→20:46)
[2021-01-24] MEDS: CALCIUM ACETATE 667MG CAPSULE PO SCH ×3 (08:46→17:52)
[2021-01-24] MEDS: ENOXAPARIN 30MG/0.3ML SYR SUBCUT SCH (08:46)
[2021-01-24 12:00] VITALS: BP 120/72
[2021-01-24 16:00] VITALS: BP 143/70
[2021-01-24 20:00] VITALS: BP 161/80
[2021-01-24] MEDS: CLONIDINE 0.1MG TABLET PO PRN (20:46)
[2021-01-24] MEDS: HYDROXYZINE 10 MG TABLET PO SCH (20:47)
[2021-01-25] VITALS: BP 149/75
[2021-01-25 04:00] VITALS: BP 129/78
[2021-01-25] MEDS: SODIUM CHLORIDE 0.9% INJ 3ML FLUSH IVF SCH ×3 (06:29→21:48)
[2021-01-25] MEDS: BLOOD SUGAR DIAGNOSTIC STRIP TEST SCH ×4 (06:42→21:47)
[2021-01-25 06:56] LABS: BASOPHILS % 0.7 % (0.0-2.0); HEMATOCRIT. 28.8 % (42.0-52.0); HEMOGLOBIN. 10.2 g/dL (14.0-18.0); LYMPHOCYTES % 15.5 % (20.0-50.0); MEAN CORPUSCULAR HEMOGLOBIN 33.4 pg (28.0-32.0); MEAN CORPUSCULAR VOLUME 94.1 fL (80.0-94.0); MEAN PLATELET VOLUME 7.8 fl (7.4-10.4); MONOCYTES % 10.9 % (2.0-8.0); NEUTROPHILS % 68.9 % (40.0-76.0); PLATELET 133 x1000/uL (130-400); RED BLOOD CELL COUNT 3.06 mill/uL (4.7-6.1); RED CELL DISTRIBUTION WIDTH 13.2 % (11.6-14.6)
[2021-01-25 07:16] LABS: PHOSPHORUS 5.3 mg/dL (2.5-4.9)
[2021-01-25 08:00] VITALS: BP 172/80
[2021-01-25] MEDS: HYDRALAZINE HCL 25MG TABLET PO SCH ×3 (09:00→17:00)
[2021-01-25] MEDS: ENOXAPARIN 30MG/0.3ML SYR SUBCUT SCH (09:02)
[2021-01-25] MEDS: MEMANTINE HCL 5MG TABLET PO SCH ×2 (09:02→21:48)
[2021-01-25] MEDS: FOLIC ACID/VITAMIN B COMP W-C TABLET PO SCH (09:02)
[2021-01-25] MEDS: OLANZAPINE 5MG TABLET PO SCH ×2 (09:02→21:48)
[2021-01-25] MEDS: CALCIUM ACETATE 667MG CAPSULE PO SCH ×3 (09:03→18:19)
[2021-01-25] MEDS: BRIMONIDINE 0.2% OPHTH DROPS 5ML EACHEYE SCH ×2 (09:04→21:47)
[2021-01-25] MEDS: TIMOLOL MALEATE 0.5% OPHTH DROPS 5ML EACHEYE SCH ×2 (09:04→21:47)
[2021-01-25] MEDS: AMLODIPINE 10MG TABLET PO SCH (09:04)
[2021-01-25] MEDS: FERROUS SULFATE 325MG TABLET PO SCH ×2 (09:04→18:18)
[2021-01-25] MEDS: INSULIN LISPRO 100 UNITS/ML SUBCUT SCH ×4 (09:12→21:00)
[2021-01-25 12:00] VITALS: BP 125/64
[2021-01-25 16:00] VITALS: BP 153/75
[2021-01-25 20:00] VITALS: BP 144/75
[2021-01-26] VITALS: BP 140/70
[2021-01-26 04:00] VITALS: BP 168/85
[2021-01-26] MEDS: SODIUM CHLORIDE 0.9% INJ 3ML FLUSH IVF SCH (06:46)
[2021-01-26] MEDS: BLOOD SUGAR DIAGNOSTIC STRIP TEST SCH (06:46)
[2021-01-26] MEDS: INSULIN LISPRO 100 UNITS/ML SUBCUT SCH (07:49)
[2021-01-26 08:00] VITALS: BP 172/85
[2021-01-26] MEDS: ENOXAPARIN 30MG/0.3ML SYR SUBCUT SCH (08:31)
[2021-01-26] MEDS: MEMANTINE HCL 5MG TABLET PO SCH (08:31)
[2021-01-26] MEDS: HYDRALAZINE HCL 25MG TABLET PO SCH (08:31)
[2021-01-26] MEDS: FOLIC ACID/VITAMIN B COMP W-C TABLET PO SCH (08:31)
[2021-01-26] MEDS: CALCIUM ACETATE 667MG CAPSULE PO SCH (08:31)
[2021-01-26] MEDS: TIMOLOL MALEATE 0.5% OPHTH DROPS 5ML EACHEYE SCH (08:32)
[2021-01-26] MEDS: FERROUS SULFATE 325MG TABLET PO SCH (08:32)
[2021-01-26] MEDS: OLANZAPINE 5MG TABLET PO SCH (08:32)
[2021-01-26] MEDS: AMLODIPINE 10MG TABLET PO SCH (08:32)
[2021-01-26] MEDS: BRIMONIDINE 0.2% OPHTH DROPS 5ML EACHEYE SCH (08:32)
[2021-01-26 10:29] VITALS: BP 152/82
[2021-01-26] MEDS ORDERED: MEMA5TAB42 PO ×2 (11:04→11:05)
[2021-01-26 12:00] VITALS: BP 135/70
[2021-01-26] MEDS ORDERED: CALCIUM ACETATE 667MG CAPSULE PO SCH (12:50)
[2021-01-26] MEDS ORDERED: CLONIDINE 0.2MG TABLET PO SCH (13:00)
[2021-01-26] MEDS ORDERED: DOCUSATE SODIUM 100MG CAPSULE PO SCH (17:00)
[2021-01-26] MEDS ORDERED: LORAZEPAM 0.5MG TABLET PO SCH (17:00)
[2021-01-26] MEDS ORDERED: OLANZAPINE 5MG TABLET PO SCH (17:00)
[2021-01-26] MEDS ORDERED: FERROUS SULFATE 325MG TABLET PO SCH (17:50)
[2021-01-26] MEDS ORDERED: ATORVASTATIN CALCIUM 20MG TABLET PO SCH (21:00)
[2021-01-27] MEDS ORDERED: AMLODIPINE 10MG TABLET PO SCH (09:00)
[2021-01-27] MEDS ORDERED: MEMANTINE HCL 5MG TABLET PO SCH (09:00)
[2021-01-27] MEDS ORDERED: FOLIC ACID/VITAMIN B COMP W-C TABLET PO SCH (09:00)
== END 2021-01-26 12:05 | disposition home health service (06) | DRG 682 ==
LOC: ER 16:50 → 6EST 20:00 → ENRESERV 01-18 07:19
PROVIDERS: ADMIT Specialist; ATTEND Specialist
PROC: 5A1D70Z Performance of Urinary Filtration, Intermittent, Less than 6 Hours Per Day (ICD-10-PCS; 2021-01-18)
PROC: 4A00X4Z Measurement of Central Nervous Electrical Activity, External Approach (ICD-10-PCS; principal; 2021-01-19)
PROC: 5A1D70Z Performance of Urinary Filtration, Intermittent, Less than 6 Hours Per Day (ICD-10-PCS; 2021-01-19)
PROC: 5A1D70Z Performance of Urinary Filtration, Intermittent, Less than 6 Hours Per Day (ICD-10-PCS; 2021-01-22)
PROC: 5A1D70Z Performance of Urinary Filtration, Intermittent, Less than 6 Hours Per Day (ICD-10-PCS; 2021-01-24)
DX: I12.0 Hypertensive chronic kidney disease with stage 5 chronic kidney disease or end stage renal disease (principal); N18.6 End stage renal disease; F23 Brief psychotic disorder; E11.22 Type 2 diabetes mellitus with diabetic chronic kidney disease; F01.50 Vascular dementia, unspecified severity, without behavioral disturbance, psychotic disturbance, mood disturbance, and anxiety; D63.8 Anemia in other chronic diseases classified elsewhere; B19.20 Unspecified viral hepatitis C without hepatic coma; D53.9 Nutritional anemia, unspecified; F41.0 Panic disorder [episodic paroxysmal anxiety]; J44.9 Chronic obstructive pulmonary disease, unspecified; Z63.9 Problem related to primary support group, unspecified; Z79.899 Other long term (current) drug therapy; Z86.73 Personal history of transient ischemic attack (TIA), and cerebral infarction without residual deficits; Z99.2 Dependence on renal dialysis; Z79.1 Long term (current) use of non-steroidal anti-inflammatories (NSAID)
CPT/HCPCS: 36415; 36600; 70551; 74177; 76700; 80048; 80053; 80305; 81003; 82105; 82375; 82378; 82607; 82728; 82746; 82805; 82962; 83036; 83540; 83550; 83735; 84100; 84443; 85025; 86301; 86705; 86709; 86803; 87340; 95816; 97116; 97162; 97166; 97530; 99285; J1650; J1815; J2060; Q9967

== ENCOUNTER 2021-03-10 19:26 | Inpatient (IN) | payer BC ==
[~2021-03-10] VITALS: Ht 188 cm; Wt 106.1 kg
[~2021-03-10 19:26] MED LIST changes: +AMLO10TA80 PO; -ATOR20TA65 PO; +CLON0.2T PO; +DOCU-138 MT; +LORA-249 PO; +MEMA5TAB42 PO; +OLAN10TA19 PO
[2021-03-10] MEDS ORDERED: MORPHINE SULFATE 4 MG/ML CPJ (NOT FOR IM USE) IV STA (23:13)
[2021-03-10] MEDS ORDERED: ONDANSETRON HCL 4MG/2ML INJ IV STA (23:13)
[2021-03-10] MEDS ORDERED: SODIUM CHLORIDE 0.9% 1,000 ML IV ONE (23:15)
[2021-03-10 23:35] LABS: BASOPHILS % 0.4 % (0.0-2.0); EOSINOPHILS % 1.3 % (0.0-5.0); HEMATOCRIT. 33.2 % (42.0-52.0); HEMOGLOBIN. 11.9 g/dL (14.0-18.0); LYMPHOCYTES % 11.9 % (20.0-50.0); MEAN CORPUSCULAR HEMOGLOBIN 33.8 pg (28.0-32.0); MEAN PLATELET VOLUME 7.8 fl (7.4-10.4); MONOCYTES % 7.9 % (2.0-8.0); NEUTROPHILS % 78.5 % (40.0-76.0); PLATELET 138 x1000/uL (130-400); RED BLOOD CELL COUNT 3.53 mill/uL (4.7-6.1); RED CELL DISTRIBUTION WIDTH 13.7 % (11.6-14.6)
[2021-03-10 23:40] LABS: CHLORIDE 96 mEq/L (98-107)
[2021-03-11] MEDS ORDERED: HYDRALAZINE 20MG/ML VIAL IV ONE (00:45)
[2021-03-11] MEDS ORDERED: IPRATROPIUM/ALBUTEROL 0.5-3(2.5)MG/3ML NEB HHN PRN ×2 (09:45→13:15)
[2021-03-11] MEDS ORDERED: ONDANSETRON HCL 4MG/2ML INJ IV PRN (09:45)
[2021-03-11] MEDS ORDERED: MORPHINE SULFATE 2 MG/ML CPJ (NOT FOR IM USE) IV PRN (09:45)
[2021-03-11] MEDS ORDERED: DIPHENHYDRAMINE 50MG/ML VIAL IV PRN (09:45)
[2021-03-11] MEDS ORDERED: NALOXONE HCL 0.4MG/ML VIAL IV PRN (10:00)
[2021-03-11] MEDS: DEXT 5%/0.9% NACL 1,000 ML IV SCH ×2 (10:30→23:04)
[2021-03-11 16:00] VITALS: BP 178/83
[2021-03-11 16:19] VITALS: BP 178/83
[2021-03-11] MEDS ORDERED: SEVE800T8 PO (16:22)
[2021-03-11] MEDS ORDERED: HYDR10SY11 PO (16:22)
[2021-03-11] MEDS ORDERED: HYDR10TA34 PO (16:22)
[2021-03-11] MEDS: AMLODIPINE 10MG TABLET PO SCH (16:40)
[2021-03-11] MEDS: MEMANTINE HCL 5MG TABLET PO SCH (16:40)
[2021-03-11] MEDS: CLONIDINE 0.2MG TABLET PO SCH ×2 (16:41→21:39)
[2021-03-11] MEDS: FERROUS SULFATE 325MG TABLET PO SCH (16:56)
[2021-03-11] MEDS: CALCIUM ACETATE 667MG CAPSULE PO SCH (16:57)
[2021-03-11] MEDS ORDERED: OLANZAPINE 10MG TABLET PO SCH (17:00)
[2021-03-11 18:00] VITALS: BP 148/79
[2021-03-11] MEDS: ARIPIPRAZOLE 5MG TABLET PO SCH (19:18)
[2021-03-11 20:00] VITALS: BP 147/80
[2021-03-11] MEDS ORDERED: DEXTROSE 50% WATER 50ML SYRINGE IV PRN (20:45)
[2021-03-11] MEDS ORDERED: SENNOSIDES 8.6MG TABLET PO PRN (21:00)
[2021-03-11] MEDS ORDERED: RISPERIDONE 1MG TABLET PO SCH (21:00)
[2021-03-11] MEDS: BLOOD SUGAR DIAGNOSTIC STRIP TEST SCH (21:33)
[2021-03-11] MEDS: INSULIN LISPRO 100 UNITS/ML SUBCUT SCH (21:38)
[2021-03-11] MEDS: ATORVASTATIN CALCIUM 20MG TABLET PO SCH (21:40)
[2021-03-12] VITALS: BP 133/75
[2021-03-12] MEDS: ACETAMINOPHEN 325MG TABLET PO PRN (01:42)
[2021-03-12] MEDS: CLONIDINE 0.1MG TABLET PO PRN (01:56)
[2021-03-12 04:00] VITALS: BP 130/76
[2021-03-12] MEDS: CLONIDINE 0.2MG TABLET PO SCH ×3 (06:00→22:28)
[2021-03-12 06:24] LABS: BASOPHILS % 0.5 % (0.0-2.0); EOSINOPHILS % 4.6 % (0.0-5.0); HEMOGLOBIN. 10.4 g/dL (14.0-18.0); LYMPHOCYTES % 18.3 % (20.0-50.0); MEAN CORPUSCULAR HEMOGLOBIN 32.8 pg (28.0-32.0); MEAN CORPUSCULAR VOLUME 97.6 fL (80.0-94.0); MEAN PLATELET VOLUME 8.5 fl (7.4-10.4); NEUTROPHILS % 67.6 % (40.0-76.0); PLATELET 132 x1000/uL (130-400); RED BLOOD CELL COUNT 3.18 mill/uL (4.7-6.1); RED CELL DISTRIBUTION WIDTH 13.5 % (11.6-14.6)
[2021-03-12 06:48] LABS: CHLORIDE 102 mEq/L (98-107)
[2021-03-12 07:12] LABS: VITAMIN B12 SERUM 1374 pg/mL (211-911)
[2021-03-12] MEDS: BLOOD SUGAR DIAGNOSTIC STRIP TEST SCH ×4 (07:20→21:00)
[2021-03-12 07:27] LABS: FOLIC ACID (FOLATE) SERUM > 20.00 ng/mL (>5.38)
[2021-03-12 08:00] VITALS: BP 127/84
[2021-03-12] MEDS: CALCIUM ACETATE 667MG CAPSULE PO SCH ×3 (09:53→18:00)
[2021-03-12] MEDS: FOLIC ACID/VITAMIN B COMP W-C TABLET PO SCH (09:53)
[2021-03-12] MEDS: ARIPIPRAZOLE 5MG TABLET PO SCH (09:54)
[2021-03-12] MEDS: DOCUSATE SODIUM SUGAR FREE 100MG/10ML UDC NG SCH (09:55)
[2021-03-12] MEDS: MEMANTINE HCL 5MG TABLET PO SCH ×2 (09:55→18:00)
[2021-03-12] MEDS: AMLODIPINE 10MG TABLET PO SCH (09:55)
[2021-03-12] MEDS: POLYETHYLENE GLYCOL 3350 (17GM) 1 DOSE PACK PO SCH (09:55)
[2021-03-12] MEDS: FERROUS SULFATE 325MG TABLET PO SCH ×2 (09:55→18:00)
[2021-03-12] MEDS: INSULIN LISPRO 100 UNITS/ML SUBCUT SCH ×4 (09:56→22:29)
[2021-03-12 10:08] LABS: AMYLASE 194 IU/L (25-115); PHOSPHORUS 2.7 mg/dL (2.5-4.9)
[2021-03-12 10:10] LABS: TOTAL IRON BINDING CAPACITY 178 ug/dL (250-450)
[2021-03-12 10:42] LABS: LDL CHOLESTEROL 48 mg/dL (5-100)
[2021-03-12 10:44] LABS: HDL CHOLESTEROL 55 mg/dL (40-59)
[2021-03-12 12:00] VITALS: BP 133/77
[2021-03-12] MEDS: OLANZAPINE 2.5MG TABLET PO SCH (13:21)
[2021-03-12] MEDS: DEXT 5%/0.9% NACL 1,000 ML IV SCH ×2 (13:25→22:33)
[2021-03-12 13:39] LABS: FERRITIN 713 ng/mL (22-322)
[2021-03-12 14:21] LABS: HEPATITIS B SURFACE ANTIGEN NEGATIVE
[2021-03-12 14:50] LABS: HEPATITIS A AB IGM NEGATIVE (NEGATIVE)
[2021-03-12 16:00] VITALS: BP 113/65
[2021-03-12 20:00] VITALS: BP 120/68
[2021-03-12] MEDS: OLANZAPINE 5MG TABLET PO SCH (22:28)
[2021-03-12] MEDS: ATORVASTATIN CALCIUM 20MG TABLET PO SCH (22:28)
[2021-03-13] VITALS: BP 174/90
[2021-03-13] MEDS: CLONIDINE 0.1MG TABLET PO PRN (01:15)
[2021-03-13 04:00] VITALS: BP 145/83
[2021-03-13] MEDS: CLONIDINE 0.2MG TABLET PO SCH ×3 (05:38→21:30)
[2021-03-13 06:44] LABS: AMYLASE 88 IU/L (25-115)
[2021-03-13] MEDS: BLOOD SUGAR DIAGNOSTIC STRIP TEST SCH ×4 (06:48→21:31)
[2021-03-13 08:00] VITALS: BP 134/82
[2021-03-13] MEDS: FERROUS SULFATE 325MG TABLET PO SCH ×2 (08:18→18:09)
[2021-03-13] MEDS: POLYETHYLENE GLYCOL 3350 (17GM) 1 DOSE PACK PO SCH (08:18)
[2021-03-13] MEDS: FOLIC ACID/VITAMIN B COMP W-C TABLET PO SCH (08:18)
[2021-03-13] MEDS: MEMANTINE HCL 5MG TABLET PO SCH ×2 (08:18→18:09)
[2021-03-13] MEDS: DOCUSATE SODIUM SUGAR FREE 100MG/10ML UDC NG SCH (08:18)
[2021-03-13] MEDS: CALCIUM ACETATE 667MG CAPSULE PO SCH ×3 (08:18→18:08)
[2021-03-13] MEDS: OLANZAPINE 2.5MG TABLET PO SCH (08:20)
[2021-03-13] MEDS: AMLODIPINE 10MG TABLET PO SCH (08:20)
[2021-03-13] MEDS: INSULIN LISPRO 100 UNITS/ML SUBCUT SCH ×4 (08:21→21:32)
[2021-03-13 12:00] VITALS: BP 138/77
[2021-03-13] MEDS: DEXT 5%/0.9% NACL 1,000 ML IV SCH (12:32)
[2021-03-13 16:02] VITALS: BP 122/69
[2021-03-13 20:00] VITALS: BP 165/78
[2021-03-13] MEDS: OLANZAPINE 5MG TABLET PO SCH (21:30)
[2021-03-13] MEDS: ATORVASTATIN CALCIUM 20MG TABLET PO SCH (21:31)
[2021-03-14] VITALS: BP 157/79
[2021-03-14] MEDS: DEXT 5%/0.9% NACL 1,000 ML IV SCH ×2 (00:15→14:27)
[2021-03-14] MEDS ORDERED: LORAZEPAM 2MG/ML CPJ IV PRN (02:15)
[2021-03-14 04:00] VITALS: BP 117/68
[2021-03-14] MEDS: CLONIDINE 0.2MG TABLET PO SCH ×3 (05:42→22:43)
[2021-03-14] MEDS: BLOOD SUGAR DIAGNOSTIC STRIP TEST SCH ×4 (06:20→20:30)
[2021-03-14 07:38] LABS: BASOPHILS % 0.5 % (0.0-2.0); EOSINOPHILS % 4.2 % (0.0-5.0); HEMOGLOBIN. 11.5 g/dL (14.0-18.0); MEAN CORPUSCULAR VOLUME 94.5 fL (80.0-94.0); MEAN PLATELET VOLUME 8.1 fl (7.4-10.4); MONOCYTES % 8.5 % (2.0-8.0); NEUTROPHILS % 72.8 % (40.0-76.0); PLATELET 154 x1000/uL (130-400); RED BLOOD CELL COUNT 3.49 mill/uL (4.7-6.1); RED CELL DISTRIBUTION WIDTH 13.6 % (11.6-14.6)
[2021-03-14 08:06] VITALS: BP 116/73
[2021-03-14] MEDS: DOCUSATE SODIUM SUGAR FREE 100MG/10ML UDC NG SCH (08:51)
[2021-03-14] MEDS: CALCIUM ACETATE 667MG CAPSULE PO SCH ×3 (08:51→17:29)
[2021-03-14] MEDS: FERROUS SULFATE 325MG TABLET PO SCH ×2 (08:52→17:29)
[2021-03-14] MEDS: POLYETHYLENE GLYCOL 3350 (17GM) 1 DOSE PACK PO SCH (08:52)
[2021-03-14] MEDS: MEMANTINE HCL 5MG TABLET PO SCH ×2 (08:52→17:29)
[2021-03-14] MEDS: FOLIC ACID/VITAMIN B COMP W-C TABLET PO SCH (08:52)
[2021-03-14] MEDS: INSULIN LISPRO 100 UNITS/ML SUBCUT SCH ×4 (09:15→20:30)
[2021-03-14] MEDS: OLANZAPINE 2.5MG TABLET PO SCH (09:17)
[2021-03-14] MEDS: AMLODIPINE 10MG TABLET PO SCH (09:18)
[2021-03-14 11:10] VITALS: BP 131/78
[2021-03-14] MEDS: CLONIDINE 0.1MG TABLET PO PRN ×3 (14:27→15:09)
[2021-03-14 15:35] VITALS: BP 136/69
[2021-03-14 20:00] VITALS: BP 130/71
[2021-03-14] MEDS: ATORVASTATIN CALCIUM 20MG TABLET PO SCH (20:31)
[2021-03-14] MEDS: OLANZAPINE 5MG TABLET PO SCH (20:35)
[2021-03-15] VITALS: BP 110/74
[2021-03-15] MEDS: DEXT 5%/0.9% NACL 1,000 ML IV SCH ×2 (01:20→17:47)
[2021-03-15 04:00] VITALS: BP 149/75
[2021-03-15] MEDS: CLONIDINE 0.2MG TABLET PO SCH ×3 (05:44→21:21)
[2021-03-15 06:17] LABS: BASOPHILS % 0.8 % (0.0-2.0); EOSINOPHILS % 4.7 % (0.0-5.0); HEMATOCRIT. 31.4 % (42.0-52.0); HEMOGLOBIN. 10.9 g/dL (14.0-18.0); LYMPHOCYTES % 23.8 % (20.0-50.0); MEAN CORPUSCULAR HEMOGLOBIN 33.1 pg (28.0-32.0); MEAN CORPUSCULAR VOLUME 95.3 fL (80.0-94.0); MEAN PLATELET VOLUME 8.8 fl (7.4-10.4); MONOCYTES % 9.7 % (2.0-8.0); PLATELET 147 x1000/uL (130-400); RED BLOOD CELL COUNT 3.29 mill/uL (4.7-6.1); RED CELL DISTRIBUTION WIDTH 13.3 % (11.6-14.6)
[2021-03-15] MEDS: BLOOD SUGAR DIAGNOSTIC STRIP TEST SCH ×4 (07:52→20:27)
[2021-03-15 07:58] VITALS: BP 143/74
[2021-03-15] MEDS: CALCIUM ACETATE 667MG CAPSULE PO SCH ×3 (08:14→17:47)
[2021-03-15] MEDS: DOCUSATE SODIUM SUGAR FREE 100MG/10ML UDC NG SCH (08:14)
[2021-03-15] MEDS: MEMANTINE HCL 5MG TABLET PO SCH ×2 (08:15→17:47)
[2021-03-15] MEDS: FERROUS SULFATE 325MG TABLET PO SCH ×2 (08:15→17:47)
[2021-03-15] MEDS: AMLODIPINE 10MG TABLET PO SCH (08:15)
[2021-03-15] MEDS: FOLIC ACID/VITAMIN B COMP W-C TABLET PO SCH (08:15)
[2021-03-15] MEDS: POLYETHYLENE GLYCOL 3350 (17GM) 1 DOSE PACK PO SCH (08:15)
[2021-03-15] MEDS: OLANZAPINE 2.5MG TABLET PO SCH (08:15)
[2021-03-15] MEDS: INSULIN LISPRO 100 UNITS/ML SUBCUT SCH ×4 (08:22→20:22)
[2021-03-15] MEDS ORDERED: BISACODYL 10MG SUPP PR NR (10:45)
[2021-03-15 12:18] VITALS: BP 146/77
[2021-03-15 16:34] VITALS: BP 129/75
[2021-03-15] MEDS: OLANZAPINE 5MG TABLET PO SCH (20:21)
[2021-03-15] MEDS: ATORVASTATIN CALCIUM 20MG TABLET PO SCH (20:21)
[2021-03-15 20:30] VITALS: BP 152/74
[2021-03-16] VITALS: BP 139/74
[2021-03-16] MEDS: DEXT 5%/0.9% NACL 1,000 ML IV SCH ×2 (02:15→15:39)
[2021-03-16 04:00] VITALS: BP 148/78
[2021-03-16] MEDS: CLONIDINE 0.2MG TABLET PO SCH ×3 (06:00→21:05)
[2021-03-16] MEDS: BLOOD SUGAR DIAGNOSTIC STRIP TEST SCH ×4 (06:59→20:49)
[2021-03-16] MEDS: INSULIN LISPRO 100 UNITS/ML SUBCUT SCH ×4 (07:00→21:36)
[2021-03-16 08:24] VITALS: BP 149/69
[2021-03-16] MEDS: AMLODIPINE 10MG TABLET PO SCH (09:00)
[2021-03-16] MEDS: FERROUS SULFATE 325MG TABLET PO SCH ×2 (09:27→17:59)
[2021-03-16] MEDS: FOLIC ACID/VITAMIN B COMP W-C TABLET PO SCH (09:27)
[2021-03-16] MEDS: MEMANTINE HCL 5MG TABLET PO SCH ×2 (09:27→17:59)
[2021-03-16] MEDS: POLYETHYLENE GLYCOL 3350 (17GM) 1 DOSE PACK PO SCH (09:27)
[2021-03-16] MEDS: OLANZAPINE 2.5MG TABLET PO SCH (09:27)
[2021-03-16] MEDS: DOCUSATE SODIUM SUGAR FREE 100MG/10ML UDC NG SCH (09:27)
[2021-03-16] MEDS: CALCIUM ACETATE 667MG CAPSULE PO SCH ×3 (09:27→17:59)
[2021-03-16 09:53] LABS: AMYLASE 101 IU/L (25-115)
[2021-03-16 11:55] VITALS: BP 147/77
[2021-03-16] MEDS ORDERED: OLAN2.5T29 PO (13:35)
[2021-03-16] MEDS ORDERED: OLAN5TAB26 PO (13:35)
[2021-03-16 16:12] VITALS: BP 108/72
[2021-03-16 20:00] VITALS: BP 156/75
[2021-03-16] MEDS: OLANZAPINE 5MG TABLET PO SCH (21:03)
[2021-03-16] MEDS: ATORVASTATIN CALCIUM 20MG TABLET PO SCH (21:03)
[2021-03-17] VITALS: BP 135/69
[2021-03-17] MEDS: ACETAMINOPHEN 325MG TABLET PO PRN (01:04)
[2021-03-17 04:00] VITALS: BP 150/70
[2021-03-17] MEDS: CLONIDINE 0.2MG TABLET PO SCH ×2 (05:38→13:12)
[2021-03-17] MEDS: INSULIN LISPRO 100 UNITS/ML SUBCUT SCH ×3 (07:45→17:40)
[2021-03-17] MEDS: BLOOD SUGAR DIAGNOSTIC STRIP TEST SCH ×3 (07:45→17:40)
[2021-03-17 08:00] VITALS: BP 128/66
[2021-03-17] MEDS: FERROUS SULFATE 325MG TABLET PO SCH ×2 (09:26→17:35)
[2021-03-17] MEDS: CALCIUM ACETATE 667MG CAPSULE PO SCH ×3 (09:26→17:35)
[2021-03-17] MEDS: MEMANTINE HCL 5MG TABLET PO SCH ×2 (09:27→17:35)
[2021-03-17] MEDS: POLYETHYLENE GLYCOL 3350 (17GM) 1 DOSE PACK PO SCH (09:27)
[2021-03-17] MEDS: OLANZAPINE 2.5MG TABLET PO SCH (09:27)
[2021-03-17] MEDS: FOLIC ACID/VITAMIN B COMP W-C TABLET PO SCH (09:27)
[2021-03-17] MEDS: AMLODIPINE 10MG TABLET PO SCH (09:27)
[2021-03-17] MEDS: DOCUSATE SODIUM SUGAR FREE 100MG/10ML UDC NG SCH (09:27)
[2021-03-17 12:00] VITALS: BP 143/77
[2021-03-17 16:00] VITALS: BP 133/72
[2021-03-17 18:23] VITALS: BP 143/70
== END 2021-03-17 20:42 | disposition home health service (06) | DRG 438 ==
LOC: ER 19:26 → MICUSO 03-11 01:21 → 6WST 03-11 13:00
PROVIDERS: ADMIT Internal Medicine; ATTEND Internal Medicine
PROC: 5A1D70Z Performance of Urinary Filtration, Intermittent, Less than 6 Hours Per Day (ICD-10-PCS; principal; 2021-03-13)
PROC: 5A1D70Z Performance of Urinary Filtration, Intermittent, Less than 6 Hours Per Day (ICD-10-PCS; 2021-03-15)
PROC: 5A1D70Z Performance of Urinary Filtration, Intermittent, Less than 6 Hours Per Day (ICD-10-PCS; 2021-03-16)
DX: K85.90 Acute pancreatitis without necrosis or infection, unspecified (principal); N18.6 End stage renal disease; I13.11 Hypertensive heart and chronic kidney disease without heart failure, with stage 5 chronic kidney disease, or end stage renal disease; J98.11 Atelectasis; F03.91 Unspecified dementia, unspecified severity, with behavioral disturbance; D53.9 Nutritional anemia, unspecified; E11.22 Type 2 diabetes mellitus with diabetic chronic kidney disease; D63.1 Anemia in chronic kidney disease; E78.5 Hyperlipidemia, unspecified; Z20.822 Contact with and (suspected) exposure to COVID-19; R16.1 Splenomegaly, not elsewhere classified; I86.8 Varicose veins of other specified sites; D50.9 Iron deficiency anemia, unspecified; K57.30 Diverticulosis of large intestine without perforation or abscess without bleeding; K74.60 Unspecified cirrhosis of liver; Z86.73 Personal history of transient ischemic attack (TIA), and cerebral infarction without residual deficits; Z99.2 Dependence on renal dialysis; Z79.899 Other long term (current) drug therapy; Z91.83 Wandering in diseases classified elsewhere; Z86.19 Personal history of other infectious and parasitic diseases; K76.9 Liver disease, unspecified
CPT/HCPCS: 36415; 71045; 74176; 76700; 80048; 80053; 80061; 82150; 82607; 82728; 82746; 82962; 83036; 83540; 83550; 83735; 83880; 83970; 84100; 84132; 84443; 84478; 84484; 85025; 86705; 86709; 86803; 87340; 87426; 92610; 93005; 93970; 97162; 97166; 97530; 97535; 99285; J0360; J1815; J2270; J2405; J7030; J7042; J7070

== ENCOUNTER 2021-08-20 05:22 | Emergency (ER) | payer BC ==
[~2021-08-20] VITALS: Ht 185.4 cm; Wt 82.0 kg
[~2021-08-20 05:22] MED LIST changes: -LORA-249 PO; -OLAN10TA19 PO; +OLAN2.5T29 PO; +OLAN5TAB74 PO; -RISP1 PO
[2021-08-20 05:28] VITALS: BP 174/81
[2021-08-20 08:03] LABS: CHLORIDE 99 mEq/L (98-107)
[2021-08-20 08:07] LABS: BASOPHILS % 0.9 % (0.0-2.0); EOSINOPHILS % 4.9 % (0.0-5.0); HEMOGLOBIN. 11.3 g/dL (14.0-18.0); LYMPHOCYTES % 28.2 % (20.0-50.0); MEAN CORPUSCULAR HEMOGLOBIN 32.9 pg (28.0-32.0); MEAN PLATELET VOLUME 7.9 fl (7.4-10.4); MONOCYTES % 10.3 % (2.0-8.0); NEUTROPHILS % 55.7 % (40.0-76.0); PLATELET 143 x1000/uL (130-400); RED BLOOD CELL COUNT 3.44 mill/uL (4.7-6.1); RED CELL DISTRIBUTION WIDTH 12.8 % (11.6-14.6)
== END 2021-08-20 10:25 | disposition home or self-care (01) ==
LOC: ER 05:37
DX: I12.0 Hypertensive chronic kidney disease with stage 5 chronic kidney disease or end stage renal disease (principal); R00.1 Bradycardia, unspecified; D64.9 Anemia, unspecified; E11.22 Type 2 diabetes mellitus with diabetic chronic kidney disease; N18.6 End stage renal disease; Z99.2 Dependence on renal dialysis; F03.90 Unspecified dementia, unspecified severity, without behavioral disturbance, psychotic disturbance, mood disturbance, and anxiety; Z79.84 Long term (current) use of oral hypoglycemic drugs; Z79.899 Other long term (current) drug therapy
CPT/HCPCS: 36415; 71045; 80053; 83880; 84484; 85025; 93005; 99285

== ENCOUNTER 2023-03-29 03:29 | Emergency (ER) | payer BC ==
[~2023-03-29] VITALS: Ht 188 cm; Wt 91.0 kg
[~2023-03-29 03:29] MED LIST changes: +CARV25TA47 MT; +CEPH500T MT; +HYDR10TA34 PO; +LORA-249 PO; +LOSA100T4 PO; +REPA0.5T5 PO; +SERT25TA74 PO
[2023-03-29 04:00] VITALS: BP 166/70; PULSE 62; RESP 15; TEMP 97.2; O2SAT 96
[2023-03-29] MEDS ORDERED: HYDROCODONE/ACETAMINOPHEN 5/325MG TABLET PO ONE (05:45)
[2023-03-29] MEDS ORDERED: TOPUD MT (07:19)
[2023-03-29] MEDS ORDERED: ACET-2708 MT (07:19)
== END 2023-03-29 07:59 | disposition home or self-care (01) ==
LOC: ER 04:02
DX: S09.90XA Unspecified injury of head, initial encounter (principal); Z79.899 Other long term (current) drug therapy; W18.30XA Fall on same level, unspecified, initial encounter; Y93.89 Activity, other specified; Y92.89 Other specified places as the place of occurrence of the external cause; Y99.8 Other external cause status
CPT/HCPCS: 71250; 72131; 99284

== ENCOUNTER 2023-08-26 14:04 | Inpatient (IN) | payer BC, MEDICARE ==
[~2023-08-26] VITALS: Ht 182.9 cm; Wt 91.2 kg
[~2023-08-26 14:04] MED LIST changes: -ALPR0.5T PO; -CLON0.2T PO; -FERR325T23 PO; +HYDR-4133 PO; -LOSA100T4 PO; -OLAN5TAB74 PO; -SERT25TA74 PO; +TOPUD MT
[2023-08-26] MEDS ORDERED: ALBUTEROL (0.083%) 2.5MG/3ML NEB HHN STA (14:26)
[2023-08-26 16:27] LABS: BASOPHILS % 0.3 % (0.0-2.0); HEMATOCRIT. 35.4 % (42.0-52.0); HEMOGLOBIN. 11.7 g/dL (14.0-18.0); LYMPHOCYTES % 13.9 % (20.0-50.0); MEAN CORPUSCULAR HEMOGLOBIN 32.3 pg (28.0-32.0); MEAN CORPUSCULAR HGB CONC 33.2 g/dL (31.0-37.0); MEAN CORPUSCULAR VOLUME 97.3 fL (80.0-94.0); MEAN PLATELET VOLUME 8.3 fl (7.4-10.4); NEUTROPHILS % 74.8 % (40.0-76.0); PLATELET 114 x1000/uL (130-400); RED BLOOD CELL COUNT 3.64 mill/uL (4.7-6.1); RED CELL DISTRIBUTION WIDTH 14.4 % (11.6-14.6); WHITE BLOOD COUNT 6.7 x1000/uL (4.5-11.0)
[2023-08-26 16:36] LABS: INR 1.1; PARTIAL THROMBOPLASTIN TIME 31.9 sec (23.4-31.0); PROTHROMBIN TIME 11.4 sec (9.6-11.0)
[2023-08-26 16:39] LABS: ALANINE AMINOTRANSFERASE 11 IU/L (10-49); ALBUMIN 3.1 g/dL (3.2-4.8); ASPARTATE AMINOTRANSFERASE 22 IU/L (<34); BILIRUBIN TOTAL 0.9 mg/dL (0.1-1.0); CALCIUM 9.2 mg/dL (8.7-10.4); CARBON DIOXIDE 36 mEq/L (21-32); CHLORIDE 96 mEq/L (98-107); GLUCOSE 112 mg/dL (70-105); PROTEIN TOTAL 6.4 g/dL (6.0-8.3); SODIUM 137 mEq/L (136-145); TROPONIN I HIGH SENSITIVITY 15 ng/L (3.0-53); UREA NITROGEN BLOOD 11 mg/dL (9-23)
[2023-08-26] MEDS: ASPIRIN 81MG TABLET PO ONE ×2 (17:45→19:40)
[2023-08-26 19:00] LABS: TROPONIN I HIGH SENSITIVITY 14 ng/L (3.0-53)
[2023-08-26] MEDS ORDERED: IPRATROPIUM/ALBUTEROL 0.5-3(2.5)MG/3ML NEB HHN SCH (20:00)
[2023-08-26] MEDS ORDERED: ONDANSETRON HCL 4MG/2ML INJ IV PRN (20:00)
[2023-08-26] MEDS ORDERED: MAGNESIUM/ALUMINUM HYDROXIDE/SIMETHICONE 30ML UDC PO PRN (20:00)
[2023-08-26] MEDS ORDERED: DOCUSATE SODIUM 100MG CAPSULE PO PRN (20:00)
[2023-08-26] MEDS ORDERED: CLONIDINE 0.1MG TABLET PO PRN (20:00)
[2023-08-26] MEDS ORDERED: GUAIFENESIN 200MG/10ML SUGAR FREE UDC PO PRN (20:00)
[2023-08-26] MEDS ORDERED: ACETAMINOPHEN 325MG TABLET PO PRN ×2 (20:00)
[2023-08-26] MEDS ORDERED: HYDRALAZINE 20MG/ML VIAL IV PRN (20:30)
[2023-08-26] MEDS ORDERED: LEVOFLOXACIN 500MG PREMIX 100 ML IV NR ×2 (20:30→23:00)
[2023-08-26] MEDS ORDERED: AMLODIPINE 10MG TABLET PO SCH (20:30)
[2023-08-26] MEDS ORDERED: AMLODIPINE 5MG TABLET PO NR (20:45)
[2023-08-26] MEDS ORDERED: VANCOMYCIN 1.25GM PMX (XELLIA) 250 ML IV NR (20:45)
[2023-08-26] MEDS ORDERED: AZITHROMYCIN 500MG/250ML 250 ML IV NR ×2 (20:45→23:00)
[2023-08-26] MEDS ORDERED: ALBUTEROL (0.083%) 2.5MG/3ML NEB HHN NR (20:45)
[2023-08-26 21:00] VITALS: BP 156/73; PULSE 74; RESP 20; TEMP 98.5
[2023-08-26] MEDS ORDERED: ENOXAPARIN 30MG/0.3ML SYR SUBCUT SCH (21:00)
[2023-08-26] MEDS: DOXAZOSIN MESYLATE 4MG TABLET PO SCH (21:00)
[2023-08-26 21:07] LABS: IRON 122 ug/dL (65-175)
[2023-08-26] MEDS ORDERED: DEXTROSE 50% WATER 50ML SYRINGE IV PRN (21:15)
[2023-08-26 21:17] LABS: TOTAL IRON BINDING CAPACITY < 40 ug/dl (250-425)
[2023-08-26 21:26] LABS: FERRITIN 1212 ng/mL (22-322); FOLIC ACID (FOLATE) SERUM > 20.00 ng/mL (>5.38); VITAMIN B12 SERUM 1149 pg/mL (211-911)
[2023-08-26 21:51] LABS: BG BASE EXCESS 10.3 mmol/L (-2.0-2.0); BG CARBOXYHEMOGLOBIN 0.7 % (0.5-1.5); BG DEOXYHEMOGLOBIN 3.8 % (0.0-5.0); BG HCO3 ACT 34.7 mmol/L (22.0-26.0); BG METHEMOGLOBIN 0.3 % (0.0-1.5); BG OXYGEN SATURATION 96.2 % (92.0-98.5); BG OXYHEMOGLOBIN 95.2 % (94.0-97.0); BG PCO2 45.4 mmHg (35.0-45.0); BG PH 7.501 (7.350-7.450); BG PO2 78.6 mmHg (75.0-100.0); BG SAMPLE SITE RIGHT RADIAL; BG TOTAL HEMOGLOBIN 12.1 g/dL (12.0-18.0); BG VENT MODE ROOM AIR
[2023-08-26] MEDS ORDERED: CLONIDINE 0.1MG TABLET PO SCH (22:00)
[2023-08-27] VITALS (7 sets, daily range): BP systolic 106–176; BP diastolic 53–85; PULSE 61–77; RESP 15–20; TEMP 97.3–98.7; O2SAT 93
[2023-08-27] MEDS ORDERED: VANCOMYCIN 1.25GM PMX (XELLIA) 250 ML IV NR (01:00)
[2023-08-27 02:13] LABS: CREATINE KINASE MB FRACTION 1.3 ng/mL (0.5-3.6)
[2023-08-27] MEDS: BLOOD SUGAR DIAGNOSTIC STRIP TEST SCH ×4 (06:40→21:00)
[2023-08-27] MEDS: INSULIN LISPRO 100 UNITS/ML SUBCUT SCH ×4 (07:10→22:15)
[2023-08-27] MEDS ORDERED: FOLI0.8T23 MT (07:17)
[2023-08-27] MEDS ORDERED: CLON0.2T PO (07:17)
[2023-08-27] MEDS ORDERED: OLAN2.5T29 PO (07:17)
[2023-08-27] MEDS ORDERED: HYDR-4135 PO (07:17)
[2023-08-27] MEDS ORDERED: CARV12.545 PO (07:17)
[2023-08-27 07:51] LABS: CREATINE KINASE MB FRACTION 0.7 ng/mL (0.5-3.6)
[2023-08-27 07:59] LABS: ALANINE AMINOTRANSFERASE 9 IU/L (10-49); ALBUMIN 2.6 g/dL (3.2-4.8); ASPARTATE AMINOTRANSFERASE 24 IU/L (<34); BILIRUBIN TOTAL 0.7 mg/dL (0.1-1.0); CALCIUM 9.1 mg/dL (8.7-10.4); CARBON DIOXIDE 31 mEq/L (21-32); CHLORIDE 97 mEq/L (98-107); CHOLESTEROL 119 mg/dL (<200); CREATININE 3.7 mg/dL (0.6-1.3); GLUCOSE 106 mg/dL (70-105); HDL CHOLESTEROL 38 mg/dL (>55); LDL CHOLESTEROL 54 mg/dL (5-100); POTASSIUM 3.5 mEq/L (3.5-5.1); PROTEIN TOTAL 5.8 g/dL (6.0-8.3); SODIUM 135 mEq/L (136-145); T4 FREE 1.09 ng/dL (0.89-1.76); THYROID STIMULATING HORMONE 2.84 uIU/mL (0.55-4.78); TRIGLYCERIDE 51 mg/dL (0-150); UREA NITROGEN BLOOD 18 mg/dL (9-23)
[2023-08-27] MEDS: PANTOPRAZOLE SODIUM 40 MG/VIAL IV SCH (09:27)
[2023-08-27] MEDS: AMLODIPINE 10MG TABLET PO SCH (09:27)
[2023-08-27] MEDS ORDERED: LORAZEPAM 0.5MG TABLET PO PRN (12:30)
[2023-08-27] MEDS ORDERED: LIDOCAINE HCL 1% 10 MG/ML 10ML VIAL ONE (12:50)
[2023-08-27] MEDS: CLONIDINE 0.2MG TABLET PO SCH ×2 (14:46→17:14)
[2023-08-27] MEDS: CEFTRIAXONE 1,000 MG in DEXTROSE 5% WATER 50 ML IV SCH (15:23)
[2023-08-27] MEDS ORDERED: HYDRALAZINE HCL 50MG TABLET PO SCH (17:00)
[2023-08-27] MEDS: AZITHROMYCIN 500MG/250ML 250 ML IV SCH (17:12)
[2023-08-27] MEDS: HYDRALAZINE HCL 50MG TABLET PO SCH (17:13)
[2023-08-27] MEDS: CALCIUM ACETATE 667MG CAPSULE PO SCH (17:14)
[2023-08-27] MEDS: MEMANTINE HCL 5MG TABLET PO SCH (17:14)
[2023-08-27] MEDS: CARVEDILOL 12.5MG TABLET PO SCH (17:14)
[2023-08-27] MEDS ORDERED: AZITHROMYCIN 500MG/250ML 250 ML IV SCH (18:00)
[2023-08-27] MEDS ORDERED: ATORVASTATIN CALCIUM 20MG TABLET PO SCH (21:00)
[2023-08-27] MEDS: DOXAZOSIN MESYLATE 4MG TABLET PO SCH (21:30)
[2023-08-27 22:38] LABS: HEPATITIS A AB IGM NEGATIVE (Negative); HEPATITIS B CORE AB IGM NEGATIVE (Negative); HEPATITIS B SURFACE ANTIGEN NEGATIVE (Negative); HEPATITIS C AB REACTIVE (Pos) (Negative)
[2023-08-28] VITALS (15 sets, daily range): BP systolic 123–177; BP diastolic 57–98; PULSE 72–88; RESP 18–22; TEMP 96.6–99; O2SAT 98
[2023-08-28 01:08] LABS: BASOPHILS % 0.7 % (0.0-2.0); HEMATOCRIT. 28.3 % (42.0-52.0); HEMOGLOBIN. 9.4 g/dL (14.0-18.0); MEAN CORPUSCULAR HEMOGLOBIN 32.5 pg (28.0-32.0); MEAN CORPUSCULAR HGB CONC 33.2 g/dL (31.0-37.0); MEAN CORPUSCULAR VOLUME 97.8 fL (80.0-94.0); MEAN PLATELET VOLUME 8.9 fl (7.4-10.4); NEUTROPHILS % 70.3 % (40.0-76.0); PLATELET 115 x1000/uL (130-400); RED BLOOD CELL COUNT 2.89 mill/uL (4.7-6.1); RED CELL DISTRIBUTION WIDTH 14.4 % (11.6-14.6); WHITE BLOOD COUNT 4.8 x1000/uL (4.5-11.0)
[2023-08-28] MEDS: CALCIUM ACETATE 667MG CAPSULE PO SCH ×3 (06:41→17:38)
[2023-08-28] MEDS: INSULIN LISPRO 100 UNITS/ML SUBCUT SCH ×3 (06:42→17:46)
[2023-08-28] MEDS: BLOOD SUGAR DIAGNOSTIC STRIP TEST SCH ×3 (06:42→17:39)
[2023-08-28 06:51] LABS: BASOPHILS % 0.1 % (0.0-2.0); EOSINOPHILS % 3.2 % (0.0-5.0); HEMATOCRIT. 27.5 % (42.0-52.0); HEMOGLOBIN. 9.5 g/dL (14.0-18.0); MEAN CORPUSCULAR HEMOGLOBIN 33.1 pg (28.0-32.0); MEAN CORPUSCULAR HGB CONC 34.7 g/dL (31.0-37.0); MEAN CORPUSCULAR VOLUME 95.4 fL (80.0-94.0); MEAN PLATELET VOLUME 8.5 fl (7.4-10.4); MONOCYTES % 10.6 % (2.0-8.0); NEUTROPHILS % 68.1 % (40.0-76.0); PLATELET 95 x1000/uL (130-400); RED BLOOD CELL COUNT 2.88 mill/uL (4.7-6.1); RED CELL DISTRIBUTION WIDTH 14.4 % (11.6-14.6); WHITE BLOOD COUNT 4.7 x1000/uL (4.5-11.0)
[2023-08-28] MEDS: CARVEDILOL 12.5MG TABLET PO SCH ×3 (08:45→17:39)
[2023-08-28] MEDS: MEMANTINE HCL 5MG TABLET PO SCH ×2 (08:45→17:38)
[2023-08-28] MEDS: CLONIDINE 0.2MG TABLET PO SCH ×4 (08:45→17:39)
[2023-08-28] MEDS: HYDRALAZINE HCL 50MG TABLET PO SCH ×4 (08:45→17:39)
[2023-08-28] MEDS: AMLODIPINE 10MG TABLET PO SCH ×2 (08:45→09:00)
[2023-08-28] MEDS: PANTOPRAZOLE SODIUM 40 MG/VIAL IV SCH (08:45)
[2023-08-28 08:52] LABS: SODIUM 133 mEq/L (136-145)
[2023-08-28 08:53] LABS: CARBON DIOXIDE 31 mEq/L (21-32); CHLORIDE 94 mEq/L (98-107); GLUCOSE 105 mg/dL (70-105); POTASSIUM 4.2 mEq/L (3.5-5.1); UREA NITROGEN BLOOD 27 mg/dL (9-23)
[2023-08-28 08:54] LABS: CREATININE 4.6 mg/dL (0.6-1.3)
[2023-08-28] MEDS ORDERED: LEVOFLOXACIN 250MG PREMIX 50 ML IV SCH (11:00)
[2023-08-28] MEDS: CEFTRIAXONE 1,000 MG in DEXTROSE 5% WATER 50 ML IV SCH (14:00)
[2023-08-28 16:46] LABS: PHOSPHORUS 1.4 mg/dL (2.5-4.9)
[2023-08-28] MEDS: AZITHROMYCIN 500MG/250ML 250 ML IV SCH (17:38)
== END 2023-08-28 20:05 | disposition home health service (06) | DRG 189 ==
LOC: ER 14:04 → 7EST 17:43
PROVIDERS: ADMIT Hospitalist; ATTEND Hospitalist
PROC: B54MZZA Ultrasonography of Right Upper Extremity Veins, Guidance (ICD-10-PCS; principal; 2023-08-27)
PROC: 05HY33Z Insertion of Infusion Device into Upper Vein, Percutaneous Approach (ICD-10-PCS; 2023-08-27)
PROC: 5A1D70Z Performance of Urinary Filtration, Intermittent, Less than 6 Hours Per Day (ICD-10-PCS; 2023-08-28)
DX: J96.01 Acute respiratory failure with hypoxia (principal); I50.33 Acute on chronic diastolic (congestive) heart failure; N18.6 End stage renal disease; I13.2 Hypertensive heart and chronic kidney disease with heart failure and with stage 5 chronic kidney disease, or end stage renal disease; E87.3 Alkalosis; E44.1 Mild protein-calorie malnutrition; F03.918 Unspecified dementia, unspecified severity, with other behavioral disturbance; F03.92 Unspecified dementia, unspecified severity, with psychotic disturbance; L97.329 Non-pressure chronic ulcer of left ankle with unspecified severity; J20.8 Acute bronchitis due to other specified organisms; E11.22 Type 2 diabetes mellitus with diabetic chronic kidney disease; Z20.822 Contact with and (suspected) exposure to COVID-19; E87.6 Hypokalemia; D53.9 Nutritional anemia, unspecified; R62.7 Adult failure to thrive; I1A.0 Resistant hypertension; R26.9 Unspecified abnormalities of gait and mobility; E11.51 Type 2 diabetes mellitus with diabetic peripheral angiopathy without gangrene; L89.159 Pressure ulcer of sacral region, unspecified stage; Z86.73 Personal history of transient ischemic attack (TIA), and cerebral infarction without residual deficits; Z68.27 Body mass index [BMI] 27.0-27.9, adult; Z99.2 Dependence on renal dialysis; Z79.84 Long term (current) use of oral hypoglycemic drugs; Z74.01 Bed confinement status
CPT/HCPCS: 36415; 36573; 36600; 71045; 71275; 80048; 80053; 80061; 80202; 82375; 82550; 82553; 82607; 82728; 82746; 82805; 82962; 83036; 83540; 83550; 83605; 83735; 83880; 84100; 84145; 84439; 84443; 84484; 85025; 85379; 86705; 86709; 87340; 87426; 87804; 90935; 93005; 93970; 94640; 99285; C1725; C1893; C9113; J0456; J0696; J1650; J1815; J1956; J3370; J3490; J7060

== ENCOUNTER 2023-08-28 20:35 | Emergency (ER) | payer BC ==
[~2023-08-28] VITALS: Ht 177.8 cm; Wt 91.0 kg
[~2023-08-28 20:35] MED LIST changes: -AMLO10TA80 PO; +CARV12.545 PO; +CLON0.2T PO; +FOLI0.8T23 MT; +HYDR-4135 PO
[2023-08-28 20:45] VITALS: O2SAT 98
[2023-08-28] MEDS ORDERED: CLONIDINE 0.3MG TABLET PO ONE (22:45)
[2023-08-28] MEDS ORDERED: CLONIDINE 0.1MG TABLET PO NR (23:45)
[2023-08-29] MEDS ORDERED: HYDRALAZINE HCL 50MG TABLET PO ONE (08:30)
[2023-08-29] MEDS ORDERED: CLONIDINE 0.2MG TABLET PO ONE (08:30)
[2023-08-29] MEDS ORDERED: HYDRALAZINE HCL 25MG TABLET PO NR (09:00)
[2023-08-29] MEDS ORDERED: CLONIDINE 0.1MG TABLET PO NR ×2 (09:00→09:15)
[2023-08-29 15:16] VITALS: BP 147/80; PULSE 70; RESP 16; TEMP 97.6
== END 2023-08-29 15:19 | disposition home or self-care (01) ==
LOC: ER 20:35
DX: I10 Essential (primary) hypertension (principal); G89.29 Other chronic pain; Z79.899 Other long term (current) drug therapy
CPT/HCPCS: 99285

== ENCOUNTER 2023-09-23 13:23 | Emergency (ER) | payer BC ==
[~2023-09-23] VITALS: Ht 177.8 cm; Wt 90.0 kg
[~2023-09-23 13:23] MED LIST changes: -CARV25TA47 MT; -CEPH500T MT; -HYDR-4133 PO; -LORA-249 PO; -NEPVIT PO; -OLAN2.5T29 PO
[2023-09-23] MEDS ORDERED: HYDRALAZINE 20MG/ML VIAL IV ONE (14:30)
[2023-09-23 15:10] LABS: BASOPHILS % 0.5 % (0.0-2.0); EOSINOPHILS % 1.9 % (0.0-5.0); HEMATOCRIT. 28.7 % (42.0-52.0); HEMOGLOBIN. 9.9 g/dL (14.0-18.0); MEAN CORPUSCULAR HEMOGLOBIN 33.5 pg (28.0-32.0); MEAN CORPUSCULAR HGB CONC 34.4 g/dL (31.0-37.0); MEAN CORPUSCULAR VOLUME 97.3 fL (80.0-94.0); MONOCYTES % 8.1 % (2.0-8.0); NEUTROPHILS % 75.5 % (40.0-76.0); PLATELET 109 x1000/uL (130-400); RED BLOOD CELL COUNT 2.95 mill/uL (4.7-6.1); RED CELL DISTRIBUTION WIDTH 15.2 % (11.6-14.6); WHITE BLOOD COUNT 5.6 x1000/uL (4.5-11.0)
[2023-09-23 15:18] LABS: PROTHROMBIN TIME 11.2 sec (9.6-11.0)
[2023-09-23 15:41] LABS: ALANINE AMINOTRANSFERASE 10 IU/L (10-49); ALBUMIN 3.1 g/dL (3.2-4.8); ASPARTATE AMINOTRANSFERASE 28 IU/L (<34); BILIRUBIN TOTAL 0.8 mg/dL (0.1-1.0); CALCIUM 8.8 mg/dL (8.7-10.4); CARBON DIOXIDE 32 mEq/L (21-32); CHLORIDE 96 mEq/L (98-107); CREATININE 3.4 mg/dL (0.6-1.3); GLUCOSE 150 mg/dL (70-105); PROTEIN TOTAL 6.5 g/dL (6.0-8.3); SODIUM 134 mEq/L (136-145); TROPONIN I HIGH SENSITIVITY 32 ng/L (3.0-53); UREA NITROGEN BLOOD 23 mg/dL (9-23)
[2023-09-23 17:00] VITALS: PULSE 68; RESP 18; O2SAT 100
[2023-09-23] MEDS: ALBUTEROL (0.083%) 2.5MG/3ML NEB HHN ONE (17:00)
[2023-09-23 21:00] VITALS: TEMP 98.6
[2023-09-23 22:21] VITALS: BP 165/72; PULSE 68; RESP 14
== END 2023-09-23 22:24 | disposition home or self-care (01) ==
LOC: ER 13:50
DX: I12.0 Hypertensive chronic kidney disease with stage 5 chronic kidney disease or end stage renal disease (principal); E11.22 Type 2 diabetes mellitus with diabetic chronic kidney disease; N18.6 End stage renal disease; J90 Pleural effusion, not elsewhere classified; Z99.2 Dependence on renal dialysis; Z79.899 Other long term (current) drug therapy
CPT/HCPCS: 36415; 71045; 74176; 80053; 83880; 84484; 85025; 93005; 94640; 99285